=== PATIENT | male | born 1960 | race Caucasian/White ===

== ENCOUNTER 2020-04-15 12:53 | Observation (INO) | payer OTHER, SELFPAY ==
[2020-04-15] VITALS (14 sets, daily range): BP systolic 107–172; BP diastolic 60–105; PULSE 60–165; RESP 16–20; TEMP 36.1–36.7; O2SAT 97–100; BMI 30.4
--- NOTE | ~2020-04-15 | CT_ITS ---
EXAMINATION: CTA chest PE protocol EXAM DATE: 04/15/2020 23:28 INDICATION: Shortness of breath and tachycardia. TECHNIQUE: Spiral CTA of the chest (pulmonary arteries) was performed with 100 cc Omnipaque 350 intr avenous contrast injection. Images were acquired during the pulmonary arterial phase. Coronal maxi mum intensity projection 3D-reconstructions were created by the technologist on dedicated workstation . Axial, coronal and sagittal reformatted images were reviewed. The dose-length product (DLP) for t his examination was 597.69 mGy-cm. The exposure was tailored according to patient size (auto mA exp osure control), and iterative reconstruction (ASIR) was used as additional dose reduction technique. There is no prior study for comparison. FINDINGS: Pulmonary arteries are well opacified and without intraluminal filling defects. No thora cic aortic dissection. The lungs are clear. There are no pleural or pericardial effusions. Trach eobronchial tree is patent. There is no mediastinal, hilar or axillary lymphadenopathy. There is no pneumothorax. Heart normal in size. There is minimal coronary arterial calcification, arterial sclerosis. There is small sliding gastroesophageal hiatal hernia. There is thoracic spondylosis wit hout osteoblastic or osteolytic lesions identified. IMPRESSION: 1. Unremarkable CT pulmonary examination. Reviewed, dictated and finalized at location G.
--- NOTE | ~2020-04-15 | XR_ITS ---
EXAMINATION: XR chest 1V portable INDICATION: Palpitations TECHNIQUE: Portable AP chest at 1342 hours COMPARISON: None available FINDINGS: The lungs are free of acute opacities. There is no pleural effusion or pneumothorax. The ca rdiomediastinal silhouette is normal. The visualized bones and soft tissues are unremarkable. IMPRESSION: 1. No acute cardiopulmonary abnormality. Reviewed, dictated and finalized at location B.
--- NOTE | 2020-04-15 13:01 | ECG_ITS ---
Measurements Intervals [place] Rate: 175 P: [place]: 0 QRS: 9 QRSD: 95 T: 9 QT: 258 QTc: 441 Interpretive Statements SUPRAVENTRICULAR TACHYCARDIA INCOMPLETE RIGHT BUNDLE BRANCH BLOCK ABNORMAL ECG Electronically Signed On 04-15-2020 13:21:29 CDT by Varun Marquez D.O.
--- NOTE | 2020-04-15 13:01 | ED.GENADULT ---
HPI - General Adult General Chief complaint: Chest Pain Stated complaint: Heart Racing Time Seen by Provider: 04/15/20 13:01 Source: patient and family Mode of arrival: ambulatory Limitations: no limitations History of Present Illness HPI narrative: Patient is a 59-year-old male with a history of hypertension, not currently being treated, who presents for evaluation of chest pain and palpitations. Patient reportedly with palpitations that began acutely this afternoon while the patient was at work. 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 His boss told him to come to the emergency department for assessment. Patient had no syncopal events. Currently he is denying any chest pain but reporting palpitations and extreme anxiety. Patient without history any other cardiac problems. No history of DC. His mother has a history of heart disease. He has no recent decreased oral intake or medication changes. He denies drug use, he reports that he is a daily drinker with binge drinking on the weekends; greater than 10 drinks per week. Related Data Home Medications Medication Instructions Recorded Confirmed No Home Medications 04/15/20 04/15/20 Allergies Allergy/AdvReac Type Severity Reaction Status Date / Time No Known Allergies Allergy Verified 04/15/20 13:33 Review of Systems Review of Systems: Narrative: CONSTITUTIONAL: Denies fever, chills, reports feeling diaphoretic EYES: Denies visual changes ENT: Denies rhinorrhea, congestion, sore throat, or otalgia. CARDIOVASCULAR: Reports earlier chest pain, now resolved, and palpitations RESPIRATORY: Denies cough or dyspnea. GASTROINTESTINAL: Denies abdominal pain, nausea, vomiting, or diarrhea. GENITOURINARY: Denies dysuria or hematuria. SKIN: Denies rash or itching. MUSCULOSKELETAL: Denies back pain, joint pain, or myalgia. NEUROLOGIC: Denies headache, numbness, or weakness. 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 EYES: PERRLA and EOMI. ENT: Nares clear, no rhinorrhea or epistaxis. Mucous membranes moist. NECK: Supple. CHEST: No respiratory distress, breathing even and non labored HEART: Tachycardic rate, sinus rhythm ABDOMEN:Non distended, non tender EXTREMITIES: Normal range of motion. No edema. SKIN: Warm, dry, no rash. NEURO:No focal deficits. Alert and oriented x3 Course Vital Signs Vital signs: Vital Signs Temperature 36.7 C 04/15/20 13:09 Pulse Rate 165 H 04/15/20 13:09 Respiratory Rate 20 04/15/20 13:09 Blood Pressure 166/105 H 04/15/20 13:09 Pulse Oximetry 100 04/15/20 13:09 Temperature 36.7 C 04/15/20 13:09 Pulse Rate 78 04/15/20 14:54 Respiratory Rate 04/15/20 14:54 Blood Pressure 151/82 H 04/15/20 14:54 Pulse Oximetry 99 04/15/20 14:54 Medical Decision Making MDM Narrative Medical decision making narrative: Patient presented for evaluation of chest pain and palpitations. At the time of assessment, ABCs are intact, vital signs are notable for tachydysrhythmia, it does appear to be consistent with possible SVT or A. fib vs a flutter with RVR, rate is still fast very difficult to discern P waves. IV access obtained and labs are drawn. We attempted vagal maneuvers o
--- NOTE | 2020-04-15 13:15 | PC.NURSE ---
EDP at bedside to eval pt. Pt remains in SVT, HR in 160's. Pt placed on [place] monitor, continueous EKG. VORB for 6mg Adenosine given, no change in pt HR. VORB for 12 mg Adenosine, dose administered. HR responded and remains in the 90's. Pt tolerated well.
[2020-04-15] MEDS: ADENOSINE IV SOLN 6 MG/2 ML VIAL IV PUSH (13:20)
[2020-04-15] MEDS: ADENOSINE IV SOLN 6 MG/2 ML VIAL 12 MG IV PUSH (13:22)
[2020-04-15 13:24] LABS: Basophils Percent Auto 0.4 % (0.2-1.2); Eosinophils Absolute Auto 0.1 K/mm3 (0-0.3); Eosinophils Percent Auto 0.7 % (0-4.4); Hemoglobin 15.6 g/dL (14.0-18.0); Immature Granulocyte Absolute 0.04 K/mm3 (0.00-0.031); Immature Granulocyte Percent A 0.4 % (0-0.5); Lymphocytes Absolute Auto 1.69 K/mm3 (0.9-3.2); Lymphocytes Percent Auto 17.5 % (18.3-44.2); Mean Corpuscular HGB Conc 33.9 g/dl (32-36); Mean Corpuscular Hemoglobin 30.6 pg (26-34); Mean Corpuscular Volume 90.4 fl (80-100); Mean Platelet Volume 10.8 fl (7.4-10.4); Monocytes Absolute Auto 0.7 K/mm3 (0.1-0.6); Monocytes Percent Auto 7.4 % (2.6-8.5); Neutrophils Absolute Auto 7.1 K/mm3 (1.3-6.7); Neutrophils Percent Auto 73.6 % (45.5-73.1); Platelet Count Result 246 k/mm3 (150-375); Red Blood Count 5.09 M/mm3 (4.6-6.20); Red Cell Distribution Width 12.8 % (11.5-14.5); White Blood Count 9.7 K/mm3 (4.5-10.0)
[2020-04-15] MEDS: ONDANSETRON INJ 4 MG/2 ML VIAL IV PUSH (13:31)
[2020-04-15] MEDS: SODIUM CHLORIDE 0.9% IV 1,000 ML 999 ML IV CONT (13:31)
[2020-04-15 13:35] LABS: Anion Gap 9 mmol/L (8-16); Blood Urea Nitrogen 13 mg/dL (9-20); Calcium 9.3 mg/dL (8.4-10.2); Carbon Dioxide 28 mmol/L (22-30); Chloride 98 mmol/L (98-107); Estimated Glomerular Filt Rate > 60; Glucose 133 mg/dL (75-110); Potassium 3.6 mmol/L (3.4-5.0); Sodium 135 mmol/L (137-145)
[2020-04-15] MEDS: ASPIRIN 81 MG CHEWABLE TABLET 324 MG PO (13:44)
--- NOTE | 2020-04-15 13:44 | ECG_ITS ---
Measurements Intervals [place] Rate: 106 P: 52 [place]: 158 QRS: 41 QRSD: 102 T: 45 QT: 322 QTc: 428 Interpretive Statements SINUS TACHYCARDIA INCOMPLETE RIGHT BUNDLE BRANCH BLOCK ABNORMAL ECG Electronically Signed On 04-15-2020 14:07:50 CDT by Varun Marquez D.O.
[2020-04-15 13:45] LABS: NT Pro B Type Natriuretic Pept 228 PG/ML (5-100)
[2020-04-15 13:50] LABS: Prothrombin Time 12.9 Seconds (11.1-14.7); Troponin I < 0.012 ng/mL (0.000-0.034)
[2020-04-15 13:51] LABS: Partial Thromboplastin Time 26.1 SECONDS (22.3-36.8)
[2020-04-15 14:00] LABS: D Dimer 0.31 ug/mL (<0.48)
--- NOTE | 2020-04-15 14:00 | PC.NURSE ---
EDP at bedside. VORB to not administered diltiazem bolus but to start Diltiazem infusion at 5mg/hr.
--- NOTE | 2020-04-15 15:02 | PM.CNCAR ---
Assessment and Plan Assessment and plan (1) Chest pain: Qualifiers: Chest pain type: other chest pain Qualified Code(s): R07.89 - Other chest pain Code(s): R07.9 - Chest pain, unspecified Status: Acute Assessment and Plan: atypical chest pain, seems to be worsened by palpation, will consider stress test at some point either this admission or later on as an outpatient (2) Heart palpitations: Code(s): R00.2 - Palpitations Status: Acute Assessment and Plan: seems to have SVT, improved with Cardizem IV, will switch to oral Cardizem, and subsequently long-term Cardizem or metoprolol. Will get echocardiogram to look for structural heart disease and look for any other abnormalities (3) SVT (supraventricular tachycardia): Code(s): I47.1 - Supraventricular tachycardia Status: Acute Assessment and Plan: responded to adenosine, and responded to Cardizem IV, will continue with Cardizem for now and switch to oral Cardizem later (4) Alcohol abuse: Code(s): F10.10 - Alcohol abuse, uncomplicated Status: Acute Assessment and Plan: discussed with him about the finding and he agreed to decrease his alcohol consumption Additional Plan Thank you for allowing me to participate in this patient's care, I will be following up with you. Please do not hesitate to call me for any other inquiry History of Present Illness History of Present Illness Consult date/time: 04/15/20 15:02 59 years old gentleman with no significant past history, came to the hospital because of palpitation dizziness lightheadedness. Noted to have supraventricular tachycardia with rates as high as 160. Was given adenosine in the emergency room converted sinus rhythm and stayed in sinus rhythm for lobe and then went back again with SVT, subsequently started on Cardizem drip, and currently he is in sinus rhythm rate of 80. He stated that he has been getting occasional palpitation but been getting more frequent lately, mostly after stress. He had significant alcohol drinking over the weekend and he had a drink yesterday, he stated that he has occasional heavy drinking, and he gets palpitation in the next day. This time that today he felt heaviness to the back of his chest, and he felt lightheaded and dizzy but did not pass out and no syncope. No nausea no vomiting. No history of known coronary artery disease Reason For Visit: tachydysrhythmia,atypical chest pain Review of Systems Constitutional: Constitutional: Reports fatigue Cardiovascular: Cardiovascular: Denies chest pain, Denies leg edema, Reports lightheadedness and Reports palpitations PMFSH Past Medical History Medical History Anxiety Hypertension Social History Social History Smoking status: Current some day smoker Tobacco type: smokeless tobacco Smokeless tobacco user: chewing tobacco Alcohol intake: never Substance use: current Substance use type: marijuana Living arrangements: with family Occupation/Education: occupation 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 Gender identity (if verbalized by the patient): Male Meds Home Medications and Allergies Home Medications Medication Instructions Recorded Confirmed Type No Home Medications 04/15/20 04/15/20 History Allergies Allergy/AdvReac Type Severity Reaction Status Date / Time No Known Allergies Allergy Verified 04/15/20 13:33 Vital Signs Vital Signs - 24 hr 04/15/20 13:09 04/15/20 13:26 04/15/20 13:30 Temperature 36.7 C Pulse Rate 165 H 99 Respiratory Rate 20 20 Blood Pressure 166/105 H 172/96 H Pulse Oximetry 100 97 100 04/15/20 13:59 04/15/20 14:54 Temperature Pulse Rate 100 78 Respiratory Rate 20 20 Blood Pressure 147/100 H 151/82 H Pulse Oximetry 99 99 Exam Narrative: E
--- NOTE | 2020-04-15 15:05 | ADMGEN ---
This patient, Richie Blackburn, was admitted to IMU Room 200-01. Patient/family oriented to hospital policies and general routines including ID bracelet, bed and alarms, visiting hours, pain management, procedures, bathroom and other care routines, personal items, smoking policy, room service/diet, and visiting hours. Valuables list has been completed. Information on how to activate the Rapid Response Team has been discussed. Patient/Family are encouraged to report perceived risks to care and to ask questions if they do not understand what they are told or what they should do.
[2020-04-15] MEDS: METOPROLOL SUCCINATE EXT REL 25 MG TABCR PO (15:56)
[2020-04-15 17:27] LABS: Cholesterol 155 mg/dL (0-200); HDL Direct 56 mg/dL; Triglycerides 37 mg/dL (<150)
[2020-04-15 17:38] LABS: LDL Cholesterol Direct 87 mg/dL
--- NOTE | 2020-04-15 18:17 | PM.IMHP ---
H&P: HPI History of Present Illness Date/Time: 04/15/20 18:17 Chief complaint: tachydysrhythmia,atypical chest pain Narrative: Richie Blackburn is a 59 year old male Who has a past medical history of hypertension but no longer takes anything for his high blood pressure. He also stated that he has some anxiety. The patient stated he just did not feel right this past Sunday. The patient stated that he drinks approximately 6 beers a Budweiser daily. He drinks every day and does not experience any withdrawal symptoms. The last he drink alcohol was last night. 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 Today around 10:30 he started to feel poorly. Said he felt like his heart was racing and he had never experienced this before. He does have some anxiety. He said Sunday he was having some stress and felt like this on Sunday as well. Today he became diaphoretic an air-conditioned trailer. He felt like his heart was going to raise out of his chest knee looked down at his chest and his heart was beating really fast. The patient felt like he was going to pass out. He had no nausea or vomiting at the time. On the way to the hospital he had some tingling to his left arm. He has not had any cardiac issues in the past. He was at work today when this occurred. The patient was afebrile. His blood pressure was elevated. He also felt somewhat short of breath today as well. The patient had not been going through any DTs at the time. Electrolytes are within normal limits. Renal function within normal limits. Troponin negative x2. Chest x-ray was read as no acute cardiopulmonary disease. Cardiology has been consulted. Patient's heart rate started to come down on his own but then came back up and then patient was given adenosine x2. He it was also given an aspirin IV fluids Ativan IV Cardizem push x1 and then a drip was started. Cardiology has seen the patient in the emergency room. Date of service 04/15/2020. Review of Systems Review of Systems: All systems reviewed & are unremarkable except as noted in HPI and below Constitutional: Constitutional: Reports as per HPI and Reports no additional constitutional complaints Eyes: Eyes: Reports as per HPI and Reports no additional eye complaints ENT: Reports system reviewed and no additional complaints, except as documented and Reports Normal hearing present Cardiovascular: Cardiovascular: Reports no additional cardiovascular complaints Respiratory: Respiratory: Reports no additional respiratory complaints and Reports no additional respiratory complaints Gastrointestinal: Gastrointestinal: Reports as per HPI and Reports no additional gastrointestinal complaints Musculoskeletal: Musculoskeletal: Reports no additional musculoskeletal complaints Integumentary/Breasts: Skin/Breast: Reports system reviewed and no additional complaints, except as docu and Reports as per HPI Neurologic: Reports system reviewed and no additional complaints, except as documented, Reports as per HPI and Reports Normal hearing present Psychiatric: Psychiatric: Reports no additional psychiatric complaints and Reports as per HPI Endocrine: Endocrine: Reports no additional endocrine complaints Hematologic/Lymphatic: Hematologic/Lymphatic: Reports no additional hematologic/lymphatic complaints Allergic/Immunologic: Allergic/Immunologic: Reports no additional allergic/immunologic complaints [facility] Past Medical History Medical History (Updated 04/15/20 @ 18:32 by Brielle Ware NP) Anxiety Hypertension Has not been taking any medicine at home. Lipoma of back excised Surgical History Surgical History (Updated 04/15/20 @ 18:25 by Brielle Ware NP) H/O hemorrhoidectomy Family History Family History (Updated 04/15/20 @ 18:26 by Brielle Ware NP) Mother Heart disease CAD (coronary artery disease) Father Alzheimer's dementia Social
[2020-04-15] MEDS: chlordiazePOXIDE 10 MG CAPSULE PO (20:05)
[2020-04-15] MEDS: dilTIAZem HCL 30 MG TABLET PO (20:06)
[2020-04-15 20:58] LABS: Troponin I 0.033 ng/mL (0.000-0.034)
[2020-04-16] VITALS (11 sets, daily range): BP systolic 116–122; BP diastolic 59–70; PULSE 58–100; RESP 16–20; TEMP 36.1–36.8; O2SAT 97–100
--- NOTE | 2020-04-16 | ECHO_ITS ---
Patient Info Name: Richie Blackburn Age: 59 years : 1960 Gender: Male Ht: 68 in Wt: 215 lbs BSA: 2.20 m2 HR: 62 bpm BP: 118 / 70 mmHg Technical Quality: Good Exam Date: 04/16/2020 9:20 AM Exam Location: [facility] Patient Status: Inpatient Admit Date: 04/15/2020 Staff Ordering Physician: Maximilian Howard MD Auto Washer: Amarilys Rushing RDCS Attending Provider: Aashish Ortega MD Exam Type: CA echo doppler color flow Study Info Indications - SVT Complete two-dimensional, color flow and Doppler transthoracic echocardiogram is performed. Summary 1. Complete two-dimensional, color flow and Doppler transthoracic echocardiogram is performed. 2. Left ventricular chamber dimension is normal. 3. Left ventricular ejection fraction is normal, estimated at 5560 %. 4. Mild sclerosis of the mitral valve. 5. There is trace mitral valve regurgitation. 6. There is mild aortic valve sclerosis. 7. Grade II diastolic dysfunction of the left ventricle (pseudonormal filling pattern). Left Ventricle Left ventricular chamber dimension is normal. Left ventricular ejection fraction is normal, estimated at 5560 %. Grade II diastolic dysfunction of the left ventricle (pseudonormal filling pattern). Left Atria Left atrial chamber dimension is normal. Right Atria Right atrial chamber dimension is normal. Aortic Valve The aortic valve is trileaflet. There is mild aortic valve sclerosis. Mitral Valve Mild sclerosis of the mitral valve. There is trace mitral valve regurgitation. Left Ventricular Outflow Tract Name Value Normal LVOT 2D LVOT Diameter 2.1 cm LVOT Doppler LVOT Peak Gradient 4 mmHg LVOT Mean Gradient 2 mmHg LVOT VTI 22 cm LVOT VTI/AV VTI Ratio 0.7 LVOT Stroke Volume 77 ml LVOT CO 15.4 l/min LVOT CI 7.3 l/min/m2 Pulmonic Valve Name Value Normal PV Doppler PV Peak Gradient 3 mmHg PV Regurgitation Doppler MT Peak End Diastolic Velocity 95 cm/s Mitral Valve Name Value Normal MV Doppler MV Decel [place] 400 cm/s2 MV PHT 55 ms MV Area (PHT) 4.0 cm2 4.0-5.0 MV Diastolic Function MV E Peak Velocity
[2020-04-16] MEDS: dilTIAZem HCL 30 MG TABLET PO ×3 (01:30→13:58)
[2020-04-16 04:28] LABS: Basophils Absolute Auto 0.1 K/mm3 (0.0-0.1); Basophils Percent Auto 0.8 % (0.2-1.2); Eosinophils Absolute Auto 0.1 K/mm3 (0-0.3); Eosinophils Percent Auto 2.2 % (0-4.4); Hematocrit 40.8 % (42.0-52.0); Hemoglobin 13.7 g/dL (14.0-18.0); Immature Granulocyte Absolute 0.01 K/mm3 (0.00-0.031); Immature Granulocyte Percent A 0.2 % (0-0.5); Lymphocytes Absolute Auto 1.35 K/mm3 (0.9-3.2); Lymphocytes Percent Auto 21.4 % (18.3-44.2); Mean Corpuscular HGB Conc 33.6 g/dl (32-36); Mean Corpuscular Hemoglobin 30.4 pg (26-34); Mean Corpuscular Volume 90.7 fl (80-100); Mean Platelet Volume 10.8 fl (7.4-10.4); Monocytes Absolute Auto 0.6 K/mm3 (0.1-0.6); Monocytes Percent Auto 9.2 % (2.6-8.5); Neutrophils Absolute Auto 4.2 K/mm3 (1.3-6.7); Neutrophils Percent Auto 66.2 % (45.5-73.1); Platelet Count Result 191 k/mm3 (150-375); Red Cell Distribution Width 12.9 % (11.5-14.5); White Blood Count 6.3 K/mm3 (4.5-10.0)
[2020-04-16 05:09] LABS: Alanine Aminotransferase 21 U/L (4-50); Albumin Level 3.3 g/dL (3.5-5.1); Alkaline Phosphatase 47 U/L (38-126); Anion Gap 5 mmol/L (8-16); Aspartate Amino Transferase 27 U/L (17-59); Bilirubin,Total 0.5 mg/dL (0.2-1.3); Blood Urea Nitrogen 11 mg/dL (9-20); Calcium 8.7 mg/dL (8.4-10.2); Carbon Dioxide 25 mmol/L (22-30); Chloride 105 mmol/L (98-107); Estimated CRCL calculation 110 ml/min; Estimated Glomerular Filt Rate > 60; Glucose 88 mg/dL (75-110); Magnesium 2.1 mg/dL (1.6-2.3); Phosphorus 2.9 mg/dL (2.5-4.5); Potassium 4.3 mmol/L (3.4-5.0); Sodium 135 mmol/L (137-145)
[2020-04-16] MEDS: METOPROLOL SUCCINATE EXT REL 25 MG TABCR PO (08:32)
[2020-04-16] MEDS: ASPIRIN 81 MG CHEWABLE TABLET PO (08:32)
[2020-04-16] MEDS: FOLIC ACID 1 MG TABLET PO (08:32)
[2020-04-16] MEDS: THIAMINE HCL 100 MG TABLET PO (08:32)
--- NOTE | 2020-04-16 09:31 | PM.PNCARD ---
Progress Note: A&P Assessment and Plan (1) Chest pain: Qualifiers: Chest pain type: other chest pain Qualified Code(s): R07.89 - Other chest pain Code(s): R07.9 - Chest pain, unspecified Status: Acute Assessment and Plan: atypical chest pain, seems to be worsened by palpation ECHO showed normal LV systolic function will consider stress test at some point as an outpatient (2) Anxiety: Code(s): F41.9 - Anxiety disorder, unspecified Status: Chronic (3) Hypertension: Code(s): I10 - Essential (primary) hypertension Status: Chronic (4) Alcohol abuse: Code(s): F10.10 - Alcohol abuse, uncomplicated Status: Acute (5) Heart palpitations: Code(s): R00.2 - Palpitations Status: Acute Assessment and Plan: initially with SVT and yesterday converted to NSR cont Cardizem and Metoprolol monitor electrolytes and kidney function, Subjective Date/time seen: 04/16/20 09:31 Pt feels fine today. No CP, SOB or palpitations. Pt was seen and examined, chart reviewed, aiyana d/w pt's nurse. Review of Systems Review of Systems: All systems reviewed & are unremarkable except as noted in HPI and below Constitutional: Constitutional: Reports as per HPI Eyes: Eyes: Reports as per HPI ENT: Reports system reviewed and no additional complaints, except as documented and Reports as per HPI Cardiovascular: Cardiovascular: Reports as per HPI Respiratory: Respiratory: Reports as per HPI Gastrointestinal: Gastrointestinal: Reports as per HPI Genitourinary: Genitourinary: Reports as per HPI Musculoskeletal: Musculoskeletal: Reports as per HPI Exam Const: General: no acute distress Nutritional Appearance: well nourished Orientation/consciousness: patient oriented x3 HENMT: Head: normal to inspection and atraumatic Ears: hearing grossly normal bilaterally Face and sinus: normal facial exam Eyes: General: appearance normal, both eyes and all related structures Pupils: Equal, round and reactive pupils present EOM: EOMs intact bilaterally Neck: Neck: supple Chest: Chest palpation & inspection: normal inspection of the chest Resp: Effort & Inspection: normal respiratory effort and no respiratory distress Auscultation: clear to auscultation bilaterally Cardio: Jugular venous distension: no JVD Rate: regular rate Heart sounds: S1 normal heart sound present, S2 normal heart sound present and no murmurs Peripheral pulses: Peripheral pulses 2+ throughout GI: GI Palp: No abdominal tenderness Auscultation: normal bowel sounds Skin: General skin exam: normal color Neuro: General: patient oriented x3 Cranial nerves: Yes Equal, round and reactive pupils present Extrem: General: normal to inspection and no clubbing, cyanosis or edema Objective Data Vital Signs Vital Signs: Vital Signs - 24 hr 04/15/20 13:09 04/15/20 13:26 04/15/20 13:30 Temperature 36.7 C Pulse Rate 165 H 99 Pulse Rate [Monitor] Respiratory Rate 20 20 Blood Pressure 166/105 H 172/96 H Pulse Oximetry 100 97 100 04/15/20 13:59 04/15/20 14:54 04/15/20 15:33 Temperature 36.4 C L Pulse Rate 100 78 78 Pulse Rate [Monitor] Respiratory Rate 20 20 16 Blood Pressure 147/100 H 151/82 H 144/76 H Pulse Oximetry 99 99 100 04/15/20 15:56 04/15/20 16:00 04/15/20 17:58 Temperature Pulse Rate 71 85 74 Pulse Rate [Monitor] Respiratory Rate Blood Pressure Pulse Oximetry 04/15/20 18:16 04/15/20 19:28 04/15/20 20:00 Temperature 36.3 C L Pulse Rate 69 64 Pulse Rate [Monitor] 71 Respiratory Rate 16 Blood Pressure 125/70 Pulse Oximetry 99 04/15/20 21:43 04/15/20 23:02 04/16/20 00:00 Temperature 36.1 C L Pulse Rate 60 65 62 Pulse Rate [Monitor] Respiratory Rate 20 Blood Pressure 107/60 Pulse Oximetry 97 04/16/20 02:00 04/16/20 03:39 04/16/20 04:00 Temperature 36.1 C L Pulse Rate 60 60 60 Pulse Rate [Mon
--- NOTE | 2020-04-16 14:02 | PM.DS ---
DS: Admitting Diagnosis Admitting Diagnosis Admitting Diagnosis: tachydysrhythmia,atypical chest pain DS: Discharge Diagnosis Discharge Diagnosis (1) Alcohol abuse: Code(s): F10.10 - Alcohol abuse, uncomplicated Status: Acute (2) SVT (supraventricular tachycardia): Code(s): I47.1 - Supraventricular tachycardia Status: Acute (3) Heart palpitations: Code(s): R00.2 - Palpitations Status: Acute (4) Hypertension: Code(s): I10 - Essential (primary) hypertension Status: Chronic (5) Anxiety: Code(s): F41.9 - Anxiety disorder, unspecified Status: Chronic DS: Summary Hospital Course Reason for hospitalization: SVT Hospital Course: 59 yo with history of alcohol abuse presented to the hospital with palpitations, diaphoresis he also reported tingling of the arms. He was found to have SVT in the ER, his heart rate was around 180, he was given adenosine with a modest response. He then received a cardizem loading dose and was placed on a drip. His troponin came back negative, his cxr was unremarkable. The patient also had a echocardiogram that showed a normal EF, no wall motion abnormalities, trace tricuspid regurgitation and grade II diastolic dysfunction. His medications were transitioned to diltiazem 120 mg ER and metoprolol succinate 25 mg daily and his heart rate remained within normal limits. Patient should follow up with cardiology and his PCP , he was also advised to stop drinking alcohol. Status at Discharge Cognitive/behavioral status at discharge: Alert and oriented Functional status at discharge: independent ambulation Overall status at discharge: patient is back to baseline Time Spent with Patient Time attestation: Total time spent providing and/or coordinating discharge services: Time spent: Greater than 30 minutes Exam Const: General: comfortable and no acute distress Neck: Neck: supple and no JVD Resp: Effort & Inspection: normal respiratory effort Auscultation: clear to auscultation bilaterally Cardio: Rate: regular rate Rhythm: regular rhythm Other: No bradycardia or tachycardia GI: GI Palp: Yes Soft to palpation Auscultation: normal bowel sounds Neuro: Motor exam (neuro): 5/5 motor strength present throughout and Normal motor muscle tone present throughout Sensory Exam: normal sensation Extrem: General: normal to inspection DS: Data Data Completed and Pending Labs on day of discharge: Labs from last 24 hours 04/16/20 04/16/20 04/16/20 04:08 04:08 04:08 WBC 6.3 RBC 4.50 L Hgb 13.7 L Hct 40.8 L MCV 90.7 MCH 30.4 MCHC 33.6 RDW 12.9 Plt Count 191 MPV 10.8 H Immature Gran % (Auto) 0.2 Neut % (Auto) 66.2 Lymph % (Auto) 21.4 [place] % (Auto) 9.2 H Eos % (Auto) 2.2 Baso % (Auto) 0.8 Lymph # (Auto) 1.35 [place] # (Auto) 0.6 Eos # (Auto) 0.1 Baso # (Auto) 0.1 Abs Immat Gran (auto) 0.01 Absolute Neuts (auto) 4.2 Absolute Nucleated RBC 0.0 Nucleated RBC % 0.0 Sodium 135 L Potassium 4.3 Chloride 105 Carbon Dioxide 25 Anion Gap 5 L BUN 11 Creatinine 0.70 Estim Creat Clear Calc 110 Estimated GFR > 60 Glucose 88 Calcium 8.7 Phosphorus 2.9 Magnesium 2.1 Total Bilirubin 0.5 AST 27 ALT 21 Alkaline Phosphatase 47 Troponin I Total Protein 6.0 L Albumin 3.3 L Triglycerides Cholesterol LDL Cholesterol Direct HDL Direct TSH (Reflex) 1.300 04/15/20 04/15/20 04/15/20 20:00 16:56 16:56 WBC RBC Hgb Hct MCV MCH MCHC RDW Plt Count MPV Immature Gran % (Auto) Neut % (Auto) Lymph % (Auto) [place] % (Auto) Eos % (Auto) Baso % (Auto) Lymph # (Auto) [place] # (Auto) Eos # (Auto) Baso # (Auto) Abs Immat Gran (auto) Absolute Neuts (auto) Absolute Nucleated RBC Nucleated RBC % Sodium Potassium Chloride Carbon
== END 2020-04-16 14:55 | disposition home or self-care (01) ==
LOC: ANHED 13:48 → ANHIMU 14:55
PROVIDERS: Nurse Practitioner; Specialist; Admitting Provider Hospitalist; Emergency Provider Emergency Medicine; PCP Chiropractor; Visit Provider Hospitalist
DX: F10.10 Alcohol abuse, uncomplicated (principal); R07.9 Chest pain, unspecified; I47.1 Supraventricular tachycardia; I10 Essential (primary) hypertension; F12.90 Cannabis use, unspecified, uncomplicated; F17.220 Nicotine dependence, chewing tobacco, uncomplicated; F41.9 Anxiety disorder, unspecified
CPT/HCPCS: 36415; 71045; 71275; 80048; 80053; 80061; 83735; 83880; 84100; 84443; 84484; 85025; 85380; 85610; 85730; 93005; 93306; 96374; 96375; 96376; 99285; A9270; G0378; J0153; J2060; J2405; J7030; Q9967

== ENCOUNTER 2023-03-30 19:40 | Emergency (ER) | payer BC, SELFPAY ==
--- NOTE | ~2023-03-30 | XR_ITS ---
EXAMINATION: XR chest 2V DATE: 03/30/2023 20:08 INDICATION: Chest pain TECHNIQUE: frontal and lateral views of the chest were obtained. COMPARISON: Chest CT and chest radiograph dated 04/15/2020 FINDINGS: The lungs remain clear with no focal airspace opacities, pulmonary edema, pleural effusion or pneumot horax. Heart size is normal. Mild thoracic kyphosis with chronic mild anterior wedging of a few mid t horacic vertebral bodies. IMPRESSION: 1. No acute cardiopulmonary disease. Reviewed, dictated and finalized at location A.
--- NOTE | 2023-03-30 19:41 | ECG_ITS ---
Measurements Intervals [place] Rate: 101 P: 22 SC: 161 QRS: -20 QRSD: 106 T: 17 QT: 347 QTc: 450 Interpretive Statements SINUS TACHYCARDIA ABNORMAL RHYTHM ECG COMPARED TO ECG 04/15/2020 13:06:42 NO SIGNIFICANT CHANGES Electronically Signed On 03-31-2023 11:35:24 CDT by Fabrizio Manuel MD
[2023-03-30 19:51] VITALS: BP 135/97; PULSE 107; RESP 19; TEMP 36.6; O2SAT 100
[2023-03-30 20:15] LABS: Basophils Absolute Auto 0.1 K/mm3 (0.0-0.1); Basophils Percent Auto 0.8 % (0.2-1.2); Eosinophils Absolute Auto 0.1 K/mm3 (0-0.3); Eosinophils Percent Auto 1.6 % (0-4.4); Hemoglobin 16.2 g/dL (14.0-18.0); Immature Granulocyte Absolute 0.03 K/mm3 (0.00-0.031); Immature Granulocyte Percent A 0.3 % (0-0.5); Lymphocytes Absolute Auto 2.28 K/mm3 (0.9-3.2); Lymphocytes Percent Auto 25.2 % (18.3-44.2); Mean Corpuscular HGB Conc 34.5 g/dl (32-36); Mean Corpuscular Hemoglobin 30.8 pg (26-34); Mean Corpuscular Volume 89.4 fl (80-100); Mean Platelet Volume 10.1 fl (7.4-10.4); Monocytes Absolute Auto 0.6 K/mm3 (0.1-0.6); Neutrophils Absolute Auto 5.9 K/mm3 (1.3-6.7); Neutrophils Percent Auto 65.1 % (45.5-73.1); Platelet Count Result 291 k/mm3 (150-375); Red Blood Count 5.26 M/mm3 (4.6-6.20); Red Cell Distribution Width 12.9 % (11.5-14.5)
[2023-03-30 20:31] LABS: Alanine Aminotransferase 35 U/L (6-50); Albumin Level 4.5 g/dL (3.5-5.1); Alkaline Phosphatase 71 U/L (38-126); Anion Gap 8 mmol/L (8-16); Aspartate Amino Transferase 40 U/L (17-59); Bilirubin,Total 0.7 mg/dL (0.2-1.3); Blood Urea Nitrogen 8 mg/dL (9-20); Calcium 9.2 mg/dL (8.4-10.2); Carbon Dioxide 29 mmol/L (22-30); Chloride 93 mmol/L (98-107); Estimated CRCL calculation 98 ml/min; Estimated Glomerular Filt Rate > 60; Glucose 112 mg/dL (65-110); Lipase 63 U/L (23-300); Potassium 3.8 mmol/L (3.4-5.0); Sodium 130 mmol/L (137-145)
[2023-03-30 20:39] LABS: Prothrombin Time 13.3 Seconds (11.1-14.7); Troponin I < 0.012 ng/mL (0.000-0.034)
[2023-03-30 22:50] VITALS: BP 132/73; PULSE 77; RESP 16; O2SAT 99
[2023-03-31 00:17] LABS: Troponin I < 0.012 ng/mL (0.000-0.034)
[2023-03-31 01:14] VITALS: BP 174/85; PULSE 74; O2SAT 100
[2023-03-31] MEDS: SODIUM CHLORIDE 0.9% IV 1,000 ML 999 ML IV CONT (01:53)
[2023-03-31] MEDS: LORazepam (*CRX) 0.5 MG TABLET PO (01:58)
--- NOTE | 2023-03-31 01:59 | ED.ARRPALP ---
HPI - Arrhythmia/Palpitations General Chief Complaint: Chest Pain Stated Complaint: cp Time Seen by Provider: 03/31/23 01:11 Source: patient Mode of arrival: ambulatory Limitations: no limitations History of Present Illness HPI narrative: This is a 62 year old male that presents to the ER for lightheadedness. Reports he has been working outside all week. Reports he feels lightheaded upon standing. Also reports that he has had some feelings of his heart racing. He does have history of SVT for which she takes metoprolol and diltiazem. His mutual fund manager is Dr. Howard. Denies chest pain, shortness of breath, or lower extremity edema. Related Data Allergies Allergy/AdvReac Type Severity Reaction Status Date / Time No Known Allergies Allergy Verified 04/15/20 13:33 Review of Systems Review of Systems: CONSTITUTIONAL: Denies fever CARDIOVASCULAR: Reports palpitations. Denies chest pain, or edema. RESPIRATORY: Denies dyspnea. All systems reviewed & are unremarkable except as noted in HPI and below PMFSH Past Medical History Medical History (Updated 03/31/23 @ 03:06 by Linda Baxter PA-C) Anxiety Hypertension Has not been taking any medicine at home. Lipoma of back excised Surgical History Surgical History (Updated 04/15/20 @ 18:25 by Brielle Ware NP) H/O hemorrhoidectomy Family History Family History (Updated 04/15/20 @ 18:26 by Brielle Ware NP) Mother Heart disease CAD (coronary artery disease) Father Alzheimer's dementia Social History Social History (Updated 04/15/20 @ 18:30 by Brielle Ware NP) Social History: patient Desires his to be the durable power corporate attorney for healthcare. The patient is full code. They have 1 child together. 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 He drinks approximately 6 or 7 beers a night. He stated that he does not go through any withdrawals. Does occasionally use marijuana. He denies using any other illicit drugs. 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 HEAD: Normocephalic, atraumatic. EYES: PERRLA and EOMI. ENT: Nares clear, no rhinorrhea or epistaxis. Mucous membranes moist. Oropharynx without tonsillar hypertrophy exudate or other lesions. Bilateral TMs pearly avila non-bulging NECK: Supple. No adenopathy or masses. CHEST: Clear to auscultation. No respiratory distress. No wheezes rales or rhonchi HEART: Regular rate and rhythm. No murmur heard. Normal peripheral pulses. EXTREMITIES: Normal range of motion. No edema. Strength equal in bilateral upper and lower extremities (5/5) SKIN: Warm, dry, no rash. NEURO: No focal deficits. Alert and oriented x3. Cranial nerves II through XII grossly intact PSYCH: Normal mood and affect Course Course Emergency Course: Patient and family updated on work-up and agree with plan of care Vital Signs Vital signs: Vital Signs Temperature 97.8 F 03/30/23 19:51 Pulse Rate 107 H 03/30/23 19:51 Respiratory Rate 19 03/30/23 19:51 Blood Pressure 135/97 H 03/30/23 19:51 Pulse Oximetry 100 03/30/23 19:51 Oxygen Delivery Room Air 03/30/23 19:51 Temperature 97.8 F 03/30/23 19:51 Pulse Rate 64 03/31/23 02:18 Respiratory Rate 15 03/31/23 02:18 Blood Pressure 150/78 H 03/31/23 02:18 Pulse Oximetry 99 03/31/23 02:18 Oxygen Delivery Room Air 03/30/23 19:51 MDM - Arrhythmia/Palpitations MDM Narrative Medical decision making narrative: Patient
[2023-03-31 02:18] VITALS: BP 150/78; PULSE 64; RESP 15; O2SAT 99
[2023-03-31 02:46] LABS: Creatine Kinase 167 U/L (55-170)
[2023-03-31 03:54] VITALS: BP 136/84; PULSE 64; RESP 16; O2SAT 98
== END 2023-03-31 03:55 | disposition home or self-care (01) ==
PROVIDERS: Emergency Medicine; Emergency Provider Physician Assistant; PCP Chiropractor
DX: R00.2 Palpitations (principal); F41.9 Anxiety disorder, unspecified; R42 Dizziness and giddiness; I10 Essential (primary) hypertension; F17.200 Nicotine dependence, unspecified, uncomplicated
CPT/HCPCS: 36415; 71046; 80053; 82550; 83690; 84484; 85025; 85610; 85730; 93005; 96360; 96361; 99284; A9270; J7030

== ENCOUNTER 2024-04-15 08:24 | Outpatient (CLI) | payer OTHER, SELFPAY ==
--- NOTE | ~2024-04-15 | XR_ITS ---
EXAMINATION: XR chest 2V DATE: 04/15/2024 09:15 INDICATION: Umbilical hernia with obstruction. TECHNIQUE: Frontal and lateral views of the chest were obtained. COMPARISON: Chest 2 views 03/30/2023, chest CT 04/15/2020 FINDINGS: There is no pneumonia, pleural effusion, or pneumothorax. The heart size is normal. There i s mild chronic anterior wedging of multiple mid thoracic vertebral bodies. IMPRESSION: 1. No acute cardiopulmonary disease. Reviewed, dictated and finalized at location A.
--- NOTE | 2024-04-15 08:31 | ECG_ITS ---
Test Date: 2024-04-15 08:57:03 Measurements Intervals [place] Rate: 67 P: 92 ID: 166 QRS: 22 QRSD: 112 T: 24 QT: 425 QTc: 450 Interpretive Statements SINUS RHYTHM INCOMPLETE RIGHT BUNDLE BRANCH BLOCK BASELINE ARTIFACT- I, II, III, AVR, AVL, AVF, V1-V6 BORDERLINE ECG No previous ECG available for comparison Electronically Signed On 04-15-2024 08:58:44 CDT by Varun Marquez D.O.
[2024-04-15 09:57] LABS: Basophils Absolute Auto 0.1 K/mm3 (0.0-0.1); Basophils Percent Auto 0.7 % (0.2-1.2); Eosinophils Absolute Auto 0.1 K/mm3 (0-0.3); Eosinophils Percent Auto 1.5 % (0-4.4); Hematocrit 45.4 % (42.0-52.0); Hemoglobin 15.6 g/dL (14.0-18.0); Immature Granulocyte Absolute 0.03 K/mm3 (0.00-0.031); Immature Granulocyte Percent A 0.3 % (0-0.5); Lymphocytes Absolute Auto 1.72 K/mm3 (0.9-3.2); Lymphocytes Percent Auto 19.7 % (18.3-44.2); Mean Corpuscular HGB Conc 34.4 g/dl (32-36); Mean Corpuscular Hemoglobin 31.6 pg (26-34); Mean Corpuscular Volume 92.1 fl (80-100); Mean Platelet Volume 11.1 fl (7.4-10.4); Monocytes Absolute Auto 0.7 K/mm3 (0.1-0.6); Monocytes Percent Auto 8.3 % (2.6-8.5); Neutrophils Absolute Auto 6.1 K/mm3 (1.3-6.7); Neutrophils Percent Auto 69.5 % (45.5-73.1); Platelet Count Result 273 k/mm3 (150-375); Red Blood Count 4.93 M/mm3 (4.6-6.20); Red Cell Distribution Width 13.7 % (11.5-14.5); White Blood Count 8.7 K/mm3 (4.5-10.0)
[2024-04-15 10:08] LABS: Alanine Aminotransferase 38 U/L (6-50); Albumin Level 4.6 g/dL (3.5-5.1); Alkaline Phosphatase 69 U/L (38-126); Anion Gap 10 mmol/L (4-12); Aspartate Amino Transferase 46 U/L (17-59); Bilirubin,Total 0.6 mg/dL (0.2-1.3); Blood Urea Nitrogen 9 mg/dL (9-20); Calcium 8.8 mg/dL (8.4-10.2); Carbon Dioxide 30 mmol/L (22-30); Chloride 88 mmol/L (98-107); Estimated Glomerular Filt Rate > 60; Glucose 99 mg/dL (65-110); Potassium 3.8 mmol/L (3.4-5.0); Sodium 128 mmol/L (137-145)
== END 2024-04-15 08:25 | disposition home or self-care (01) ==
PROVIDERS: PCP Student in an Organized Health Care Education/Training Program; Visit Provider Surgery
DX: Z01.818 Encounter for other preprocedural examination (principal); K42.9 Umbilical hernia without obstruction or gangrene; I45.10 Unspecified right bundle-branch block
CPT/HCPCS: 36415; 71046; 80053; 85025; 86850; 86900; 86901; 93005

== ENCOUNTER 2024-04-16 01:55 | Day surgery (SDC) | payer OTHER, SELFPAY ==
[2024-04-10 10:26] VITALS: BMI 30.9
--- NOTE | 2024-04-10 10:50 | SUR.PREOP ---
Report to the Outpatient Waiting Room, entrance under the green pavilion located off [facility], at time 0600 on date 04/16/2024. Planned Procedure Time: 0730.? Time changes happen often and if your time is changed the preop area will call you the afternoon before. - You and your visitor will be asked to self-screen and do not enter if you have any COVID symptoms. Please call surgeon if you need to reschedule. - A mask is optional within the hospital at this time. Patients may have clear liquids (water, carbonated beverages, clear teas, apple juice) until 3 hours prior to surgery with a maximum of 20 ounces. - No food from midnight until time of surgery and no smoking Take only the following medications with a SIP of water on the morning of surgery: Metoprolol, Diltiazem DO NOT STOP ANY OF YOUR OTHER PRESCRIPTION MEDICATIONS PRIOR TO SURGERY EXCEPT THE FOLLOWING Medications to discontinue per physician: N/A Please no make-up, nail urdu, hairspray, perfume, deodorant, or body powder the day of surgery.? No jewelry (including any body piercings) or valuables the day of surgery, leave them at home.? Please take a shower or bath the night before, or the morning of, surgery with an antibacterial soap.? Wear comfortable, loose fitting clothing.? Children are encouraged to wear pajamas. - Jewelry must be removed prior to entering the operating room.? Rings and piercings that are not removed may be cut off. - The hospital will not accept responsibility for valuables.? - Please leave all valuables, including medications, at home the day of surgery. If you are going home after surgery, a licensed refuse driver must drive you home.? - NO public transportation without another adult if you receive anesthesia. - We recommend that an adult stay with you for 24 hours following discharge. - We also recommend that you do not drive, make important decision, drink alcoholic beverages, or take any drugs that were not prescribed by your health care provider for at least 24 hours after your discharge time. Follow any additional instructions given to you from your surgeon. Telephone instructions given to patient and asked if any additional questions and then verbalized understanding. Patient advised to call surgeon office or pre surgery nurse liaison [phone] if any additional questions.
--- NOTE | 2024-04-15 15:15 | PM.SD2 ---
Same Day Admit/Disch: HPI History of Present Illness Chief complaint: Incar Umb Hernia Narrative: Richie Blackburn is a 63 year old male who has had an umbilical bulge for several years. It has gotten larger and is sometimes painful. He was seen in the office and I was unable to reduce the hernia. After discussion, he is taken to surgery at this time for robotic laparoscopic repair with mesh as an outpatient under general anesthesia. He has had no previous abdominal surgery. [facility] Past Medical History Medical History Anxiety Hypertension Has not been taking any medicine at home. Lipoma of back excised Surgical History Surgical History H/O hemorrhoidectomy Family History Family History Mother Heart disease CAD (coronary artery disease) Father Alzheimer's dementia Social History Social History Social History: patient Desires his to be the durable power commonwealth attorney for healthcare. The patient is full code. They have 1 child together. 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 He drinks approximately 6 or 7 beers a night. He stated that he does not go through any withdrawals. Does occasionally use marijuana. He denies using any other illicit drugs. Years smoked: 2 Smoking status: Former smoker Tobacco type: cigarettes and cigars Smokeless tobacco user: chewing tobacco Smoking end date: 03/06/75 Alcohol intake: current Drinks per week: 20 Substance use: current Substance use type: marijuana Other substance usage details: medical marijuana card- gummies for anxiety Do You Feel Safe in your Home?: Yes Lack of Transportation: No Lack of Food: Never True Current Housing: I Have Housing Concerned About Future Housing: No Difficulty Paying Gas/Electric Bills: No Difficulty Paying for Meds: No Currently Unemployed: No Education: High School Diploma/GED Difficulty w/ Childcare or Family Care: No Living arrangements: with family Occupation/Education: occupation 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 Gender identity (if verbalized by the patient): Male Spiritual care concerns: No Same Day Admit/Disch: Med Pre-admit Medications Home Medications Medication Instructions Recorded Confirmed Type diltiazem HCl 120 mg 120 mg PO DAILY #30 caps 04/16/20 04/10/24 Rx capsule,extended release 24 hr metoprolol succinate 25 mg 25 mg PO QAM #30 tabs 04/16/20 04/10/24 Rx tablet,extended release 24 hr (Toprol XL) hydrochlorothiazide 25 mg tablet 25 mg PO DAILY 04/10/24 04/10/24 History ibuprofen 600 mg tablet 600 mg PO Q6H PRN pain #14 tabs 04/16/24 Rx oxycodone-acetaminophen 5 mg-325 0.5 - 1 tablet PO Q6H PRN pain #10 04/16/24 Rx mg tablet tabs Review of Systems Review of Systems All systems reviewed & are unremarkable except as noted in HPI and below (HPI) Exam Const: General: comfortable, no acute distress, alert and awake HENMT: Head: normocephalic and atraumatic Mouth: Yes Normal oral and palatal mucosa present Eyes: Conjunctivae: conjunctivae normal Pupils: Equal, round and reactive pupils present EOM: EOMs intact bilaterally Neck: Neck: normal visual inspection, no lymphadenopathy and nontender Resp: Effort & Inspection: normal respiratory effort Auscultation: clear to auscultation bilaterally Cardio: Rate: regular rate Rhythm: regular rhythm Heart sounds: no gallops, no murmurs and no rubs GI: Inspection: non-distended and visible herniation (Umbilical, skin slightly dusky) GI Palp: Yes Soft to palpation, No Tenderness to palpation present (GI), No Hepatomegaly present, No Splenomegaly present and Yes Hernia present umbilical 3-10 cm (Not able to reduce. Nontender) Ski
[2024-04-16] VITALS (10 sets, daily range): BP systolic 108–161; BP diastolic 66–78; PULSE 55–75; RESP 11–16; TEMP 36.1–36.2; O2SAT 94–99; BMI 31.8
[2024-04-16] MEDS: LACTATED RINGERS 1,000 ML 30 ML IV CONT ×2 (06:50→09:15)
[2024-04-16 07:09] LABS: Sodium 132 mmol/L (137-145)
--- NOTE | 2024-04-16 07:09 | WPDHPUPDATE1 ---
History and Physical Update Update Date/Time: 04/16/24 07:09 History and Physical has been reviewed, including an updated exam of the patient. There are NO changes in the patient's condition. Risks, benefits, and alternatives have been discussed and questions answered. Patient agrees to proceed with procedure.
[2024-04-16] MEDS: ACETAMINOPHEN 500 MG TABLET 1000 MG PO (07:12)
[2024-04-16] MEDS: KETOROLAC 15 MG/ML VIAL (*BKC) IV PUSH (07:12)
--- NOTE | 2024-04-16 07:12 | WPDANESEPPF ---
Anes - Initial Pre Proc Eval Procedure: Operation Date: 04/16/24 07:30 Proposed Procedures p Robotic Laparoscopic Repair Incarcerated Umbilical Hernia with Mesh - Zoltan Arnold MD Date/Time: 04/16/24 07:12 Surgeon: Zoltan Arnold MD Pre Op Diagnosis: Incar Umb Hernia Patient Data Age: 63 Gender: M Height: 1.78 m Weight: 97.7 kg Allergies Allergy/AdvReac Type Severity Reaction Status Date / Time No Known Allergies Allergy Verified 04/10/24 10:24 Home Medications Medication Instructions Recorded Confirmed Type diltiazem HCl 120 mg 120 mg PO DAILY #30 caps 04/16/20 04/10/24 Rx capsule,extended release 24 hr metoprolol succinate 25 mg 25 mg PO QAM #30 tabs 04/16/20 04/10/24 Rx tablet,extended release 24 hr (Toprol XL) hydrochlorothiazide 25 mg tablet 25 mg PO DAILY 04/10/24 04/10/24 History Laboratory Tests 04/16/24 07:00 Sodium 132 L mmol/L (137-145) Patient hx anesthesia problems: none Family hx anesthesia problems: none Results Review: All pre-operative results and documents have been reviewed as part of the pre-operative evaluation. [facility] Past Medical History Medical History Anxiety Hypertension Has not been taking any medicine at home. Lipoma of back excised Surgical History Surgical History H/O hemorrhoidectomy Family History Family History Mother Heart disease CAD (coronary artery disease) Father Alzheimer's dementia Social History Social History Social History: patient Desires his to be the durable power resource analyst for healthcare. The patient is full code. They have 1 child together. 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 He drinks approximately 6 or 7 beers a night. He stated that he does not go through any withdrawals. Does occasionally use marijuana. He denies using any other illicit drugs. Years smoked: 2 Smoking status: Former smoker Tobacco type: cigarettes and cigars Smokeless tobacco user: chewing tobacco Smoking end date: 03/06/75 Alcohol intake: current Drinks per week: 20 Substance use: current Substance use type: marijuana Other substance usage details: medical marijuana card- gummies for anxiety Do You Feel Safe in your Home?: Yes Lack of Transportation: No Lack of Food: Never True Current Housing: I Have Housing Concerned About Future Housing: No Difficulty Paying Gas/Electric Bills: No Difficulty Paying for Meds: No Currently Unemployed: No Education: High School Diploma/GED Difficulty w/ Childcare or Family Care: No Living arrangements: with family Occupation/Education: occupation 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 Informed Consent: The patient's anesthetic plan and its attendant risks and benefits were discussed with the patient/family/POA. Questions were solicited and answers provided to the satisfaction of the patient/family/POA.
--- NOTE | 2024-04-16 07:20 | SUR.PREOP ---
0720- Notified Dr. Scott and Dr. Arnold patient's sodium 132 from today's blood draw. Per Dr. Scott and Dr. Arnold OK to proceed with surgery.
[2024-04-16] MEDS: ceFAZolin 2 GM/D5W 50 ML 2 GM/50 ML BAG IVPB (07:28)
--- NOTE | 2024-04-16 07:40 | SUR.PREOP ---
Addendum entered by Carmen Melissa RN 04/16/24 10:16: Note charted on patient in error. Original Note: 0740- Per Dr. Wells procedure cancelled for today with patient's symptoms having improved since she saw patient last. Patient aware of plan and agreeable to postpone surgery and be seen for outpatient therapy.
[2024-04-16] MEDS: BUPIVACAINE/EPINEPHRINE 0.5% 50 ML VIAL 20 ML INFILTRATE (08:10)
--- NOTE | 2024-04-16 09:28 | W.PM.PROC2 ---
Procedure Note - Detailed Date of Procedure 04/16/24 Pre-op Diagnosis Incar Umb Hernia 3 cm defect Post-op Diagnosis Other (Incarcerated umbilical hernia with 4 cm defect) Procedure Performed Robotic laparoscopic repair 4 cm umbilical hernia with 10 x [address] mesh Surgeon Zoltan Arnold MD Grease Cup Filler Marianne IQBAL Anesthesia General and Local Indications Patient has had an umbilical hernia for years. It is occasionally painful now and has been getting bigger with some purplish discoloration to the overlying skin. He is taken to surgery now for robotic laparoscopic repair. Findings Besides the main hernia defect which was 2.5 cm in length, there was another small, 5 mm defect a cm cephalad to the main umbilical hernia. Both hernias were repaired. Description of Procedure Patient was taken to surgery and induced into general anesthesia. The abdomen is prepped and draped. Patient was elevated on his left side and the table was flexed in the middle. Prep and drape was carried out. Trocars were placed in the usual fashion using applied Medical optical trocar for the initial left subcostal placement. Once intraperitoneal location was confirmed and the hernia was seen, we then placed a left flank 8 mm robotic port and a left lower quadrant 8 mm robotic port under direct visualization. The 5 mm initial port was then exchanged for an 8 mm robotic port, also under direct visualization. The robotic arms were then brought into the field. The camera was docked, placed, and targeted. The 2 working arms were then docked and the instruments were positioned appropriately near the hernia defect. The surgeon then went to the robotic console. There was quite a bit of omentum chronically incarcerated in the defect. This was taken down mostly with gentle traction and a small amount of cautery. In a oblique occur heard. Eventually, all the omentum was reduced. Some of the hernia sac was then reduced and excised as well. Properitoneal fat both caudal and cranial to the hernia defect was then dissected off the abdominal wall fascia so the edges of the defect could be easily seen and the mesh could be sutured to the abdominal wall rather than properitoneal fat. Cephalad of the main hernia defect, about 1 cm cephalad, another small defect was noted which was about 5 mm. The main hernia defect itself was 2.5 cm. We took down some of the falciform ligament so that there would be adequate fascia to suture the mesh. 0 Stratafix was then introduced into the abdomen. Suturing in a midline direction, I started just above the small hernia defect and continued a running suture to completely close both defects and then locked the suture line with the remaining suture in the midportion of the repair. A 15 x [address] mesh was then introduced into the field. The mesh was then attached to the anterior abdominal wall by using the Stratafix needle and placing it through the center of the mesh. The adhesion resistant side was facing the bowel. Once the mesh was brought up to the center of the repair, I then ran the remaining 0 Stratafix transversely towards the camera to fix that side of the mesh to the and her abdominal wall. V lock 2-0 suture were then introduced into the abdominal cavity. The V lock was then used to suture in running fashion the peripheral edge of the mesh to the anterior abdominal wall. I started at the edge for the cyst from me and then sewed in clockwise fashion all around the edge of the mesh, securing it to the anterior abdominal wall circumferentially. Three of the 2 0 V lock were required. The extra V lock suture were then used to suture the midportion of the mesh to the anterior abdominal wall up to the hernia repair. All looked good. There was no bleeding or other problems seen. We then removed all the suture needles. The robot was undocked and the instruments removed. CO2 was evacuated and the trocars were removed. Skin
[2024-04-16] MEDS: fentaNYL CITRATE INJ (*CRX) 100 MCG/2 ML VIAL 25 MCG IV PUSH ×8 (09:30→10:54)
[2024-04-16] MEDS: oxyCODONE HCL (*CRX) 5 MG TAB IR PO (11:11)
== END 2024-04-16 12:25 | disposition home or self-care (01) ==
PROVIDERS: PCP Student in an Organized Health Care Education/Training Program; Visit Provider Surgery
PROC: (CPT 49594; principal; 2024-04-16 07:30)
DX: K42.0 Umbilical hernia with obstruction, without gangrene (principal); F41.9 Anxiety disorder, unspecified; F12.90 Cannabis use, unspecified, uncomplicated; F17.220 Nicotine dependence, chewing tobacco, uncomplicated
CPT/HCPCS: 49594; S2900; 36415; 71046; 80053; 84295; 85025; 86850; 86900; 86901; 93005; 99213; A9270; C1781; G0463; J0690; J1100; J1170; J1885; J2250; J2405; J2704; J3010; J7120

== ENCOUNTER 2024-06-20 07:46 | Outpatient (CLI) | payer OTHER, SELFPAY ==
--- NOTE | ~2024-06-20 | PE_ITS ---
EXAMINATION: PET_PETPSMAST_PT DATE: 06/20/2024 13:09 INDICATION: Prostate cancer. TECHNIQUE: 4.727 mCi of Ga-68 gozetotide was administered intravenously. Low dose computed tomography (CT) images were acquired from the base of the brain to the proximal thighs for attenuation correcti on and anatomic localization. Automated exposure control was employed. Dose-length product (DLP) was 1261 mGy-cm. Positron emission tomography (PET) images were acquired in the same distribution. COMPARISON: Chest CT 04/15/2020 FINDINGS: Head/neck: There are no pathologically enlarged lymph nodes. Chest: There is no pneumonia or pleural effusion. The heart size is normal. There are coronary artery calcifications. No pericardial effusion. There are no pathologically enlarged lymph nodes. There is mild bilateral gynecomastia. Abdomen/pelvis/proximal thighs: There is diffuse hepatic steatosis. The gallbladder, spleen, pancreas , adrenal glands, and kidneys are normal. The prostate is mildly enlarged. There is increased activit y in the prostate on the right with maximum SUV of 7.6. There is diverticulosis of the colon without evidence of diverticulitis. The appendix is normal. There are no dilated loops of bowel. There are no pathologically enlarged lymph nodes. There is no free intraperitoneal fluid. There is prominent fat in left inguinal canal that may be a hernia. There is no osseous malignancy. IMPRESSION: 1. Mildly enlarged prostate with increased activity on the right, consistent with primary malignancy. No evidence of metastatic disease. Reviewed, dictated and finalized at location A. 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 Mildly enlarged prostate with increased activity on the right, consistent wi th primary malignancy. No evidence of metastatic disease.
== END 2024-06-20 07:47 | disposition home or self-care (01) ==
PROVIDERS: PCP Student in an Organized Health Care Education/Training Program; Visit Provider Urology
DX: C61 Malignant neoplasm of prostate (principal)
CPT/HCPCS: 78815; A9596

== ENCOUNTER 2024-08-14 08:26 | Outpatient (CLI) | payer OTHER, SELFPAY ==
[2024-08-14 09:56] LABS: Basophils Percent Auto 0.5 % (0.2-1.2); Eosinophils Absolute Auto 0.1 K/mm3 (0-0.3); Eosinophils Percent Auto 1.2 % (0-4.4); Hematocrit 43.7 % (42.0-52.0); Immature Granulocyte Absolute 0.03 K/mm3 (0.00-0.031); Immature Granulocyte Percent A 0.4 % (0-0.5); Lymphocytes Absolute Auto 1.52 K/mm3 (0.9-3.2); Lymphocytes Percent Auto 20.2 % (18.3-44.2); Mean Corpuscular HGB Conc 34.3 g/dl (32-36); Mean Corpuscular Hemoglobin 30.4 pg (26-34); Mean Corpuscular Volume 88.6 fl (80-100); Mean Platelet Volume 9.9 fl (7.4-10.4); Monocytes Absolute Auto 0.6 K/mm3 (0.1-0.6); Monocytes Percent Auto 8.5 % (2.6-8.5); Neutrophils Absolute Auto 5.2 K/mm3 (1.3-6.7); Neutrophils Percent Auto 69.2 % (45.5-73.1); Platelet Count Result 283 k/mm3 (150-375); Red Blood Count 4.93 M/mm3 (4.6-6.20); Red Cell Distribution Width 13.2 % (11.5-14.5); White Blood Count 7.5 K/mm3 (4.5-10.0)
[2024-08-14 10:07] LABS: Alanine Aminotransferase 34 U/L (6-50); Albumin Level 4.3 g/dL (3.5-5.1); Alkaline Phosphatase 69 U/L (38-126); Anion Gap 6 mmol/L (4-12); Aspartate Amino Transferase 38 U/L (17-59); Bilirubin,Total 0.7 mg/dL (0.2-1.3); Blood Urea Nitrogen 8 mg/dL (9-20); Calcium 8.8 mg/dL (8.4-10.2); Carbon Dioxide 31 mmol/L (22-30); Chloride 91 mmol/L (98-107); Estimated Glomerular Filt Rate > 60; Glucose 112 mg/dL (65-110); Potassium 3.6 mmol/L (3.4-5.0); Sodium 128 mmol/L (137-145)
[2024-08-14 10:09] LABS: INR 1.1; Prothrombin Time 14.2 Seconds (11.1-14.7)
[2024-08-14 10:10] LABS: Partial Thromboplastin Time 34.2 Seconds (22.3-36.8)
== END 2024-08-14 08:27 | disposition home or self-care (01) ==
LOC: ANHSURGERY 08:30
PROVIDERS: PCP Student in an Organized Health Care Education/Training Program; Visit Provider Urology
DX: Z01.812 Encounter for preprocedural laboratory examination (principal); C61 Malignant neoplasm of prostate
CPT/HCPCS: 36415; 80053; 85025; 85610; 85730; 86850; 86900; 86901; 87086

== ENCOUNTER 2024-09-09 07:00 | Inpatient (IN) | payer OTHER, SELFPAY ==
[2024-08-14 08:43] VITALS: BP 157/70; PULSE 69; RESP 16; TEMP 36.9; O2SAT 98; BMI 33.7
--- NOTE | 2024-08-14 09:02 | PC.NURSE ---
Report to the Outpatient Waiting Room, entrance under the green pavilion located off [facility], at time ___6:00AM____ on date ____08/26/24___. Planned Procedure Time: ___7:30AM .? Time changes happen often and if your time is changed the preop area will call you the afternoon before. - You and your visitor will be asked to self-screen and do not enter if you have any COVID symptoms. Please call surgeon if you need to reschedule. - A mask is optional within the hospital at this time. Patients may have clear liquids (water, carbonated beverages, clear teas, apple juice) until 3 hours prior to surgery (4:30AM) with a maximum of 20 ounces. - No food from midnight until time of surgery and no smoking. This includes no chewing gum, candy or mints. Take only the following medications with a SIP of water on the morning of surgery: ___DILTIAZEM, METOPROLOL DO NOT STOP ANY OF YOUR OTHER PRESCRIPTION MEDICATIONS PRIOR TO SURGERY EXCEPT THE FOLLOWING Medications to discontinue per physician NONE Date to take last dose Please no make-up, nail brazilian, hairspray, perfume, deodorant, or body powder the day of surgery.? No jewelry (including any body piercings) or valuables the day of surgery, leave them at home.? Please take a shower or bath the night before, or the morning of, surgery with an antibacterial soap.? Wear comfortable, loose fitting clothing.? Children are encouraged to wear pajamas. - Jewelry must be removed prior to entering the operating room.? Rings and piercings that are not removed may be cut off. - The hospital will not accept responsibility for valuables.? - Please leave all valuables, including medications, at home the day of surgery. If you are going home after surgery, a licensed trash collector truck driver must drive you home.? - NO public transportation without another adult if you receive anesthesia. - We recommend that an adult stay with you for 24 hours following discharge. - We also recommend that you do not drive, make important decision, drink alcoholic beverages, or take any drugs that were not prescribed by your health care provider for at least 24 hours after your discharge time. Follow any additional instructions given to you from your surgeon. Telephone instructions given to ___PATIENT and asked if any additional questions and then verbalized understanding. Patient advised to call surgeon office or pre surgery nurse liaison [phone] if any additional questions.
--- NOTE | 2024-09-03 12:32 | PC.NURSE ---
Report to the Outpatient Waiting Room, entrance under the green pavilion located off [facility], at time ___6:00AM____ on date __09/09/24 . Planned Procedure Time: ___7:30AM .? Time changes happen often and if your time is changed the preop area will call you the afternoon before. - You and your visitor will be asked to self-screen and do not enter if you have any COVID symptoms. Please call surgeon if you need to reschedule. - A mask is optional within the hospital at this time. Patients may have clear liquids (water, carbonated beverages, clear teas, apple juice) until 3 hours prior to surgery (4:30AM) with a maximum of 20 ounces. - No food from midnight until time of surgery and no smoking. This includes no chewing gum, candy or mints. Take only the following medications with a SIP of water on the morning of surgery: __DILTIAZEM, METOPROLOL DO NOT STOP ANY OF YOUR OTHER PRESCRIPTION MEDICATIONS PRIOR TO SURGERY EXCEPT THE FOLLOWING Medications to discontinue per physician NONE Date to take last dose Please no make-up, nail mauritian, hairspray, perfume, deodorant, or body powder the day of surgery.? No jewelry (including any body piercings) or valuables the day of surgery, leave them at home.? Please take a shower or bath the night before, or the morning of, surgery with an antibacterial soap.? Wear comfortable, loose fitting clothing.? Children are encouraged to wear pajamas. - Jewelry must be removed prior to entering the operating room.? Rings and piercings that are not removed may be cut off. - The hospital will not accept responsibility for valuables.? - Please leave all valuables, including medications, at home the day of surgery. If you are going home after surgery, a licensed truck driver rubbish collector must drive you home.? - NO public transportation without another adult if you receive anesthesia. - We recommend that an adult stay with you for 24 hours following discharge. - We also recommend that you do not drive, make important decision, drink alcoholic beverages, or take any drugs that were not prescribed by your health care provider for at least 24 hours after your discharge time. Hold all vitamins and supplements for 3 days per anesthesiologist. Follow any additional instructions given to you from your surgeon. Telephone instructions given to __PATIENT'S -SEAN and asked if any additional questions and then verbalized understanding. Patient advised to call surgeon office or pre surgery nurse liaison [phone] if any additional questions.
--- NOTE | 2024-09-08 13:44 | P.PNAN_ITS ---
Anes - Initial Pre Proc Eval Procedure: Operation Date: 09/09/24 07:30 Proposed Procedures p Robotic Assisted Nerve Sparing Prostatectomy, Possible Pelvic Lymph Node Dissection - Michael Dias MD Date/Time: 09/08/24 13:44 Surgeon: Michael Dias MD Pre Op Diagnosis: prostate CA Patient Data Age: 64 Gender: M Height: 1.74 m Weight: 102.2 kg Last Vital Signs Temp 98.5 F 08/14/24 08:43 Pulse 69 08/14/24 08:43 Resp 16 08/14/24 08:43 BP 157/70 H 08/14/24 08:43 Pulse Ox 98 08/14/24 08:43 O2 Del Method Room Air 08/14/24 08:43 Allergies Allergy/AdvReac Type Severity Reaction Status Date / Time No Known Allergies Allergy Verified 09/09/24 06:57 Home Medications ?Medication ?Instructions ?Recorded ?Confirmed ?Type diltiazem HCl 120 mg 120 mg PO DAILY #30 caps 04/16/20 09/09/24 Rx capsule,extended release 24 hr metoprolol succinate 25 mg 25 mg PO QAM #30 tabs 04/16/20 09/09/24 Rx tablet,extended release 24 hr (Toprol XL) hydrochlorothiazide 25 mg tablet 25 mg PO DAILY 04/10/24 09/09/24 History Patient hx anesthesia problems: none Family hx anesthesia problems: none Results Review: All pre-operative results and documents have been reviewed as part of the pre- operative evaluation. [facility] Past Medical History Medical History Anxiety Hypertension Has not been taking any medicine at home. Lipoma of back excised Surgical History Surgical History H/O hemorrhoidectomy Hx of umbilical hernia repair Robotic laparoscopic repair 4 cm umbilical hernia with 10 x [address] mesh on 04/16/[address] Arnold Family History Family History Mother Heart disease CAD (coronary artery disease) Father Alzheimer's dementia Social History Social History (Updated 05/22/24 @ 09:54 by Mine Mcmahan MA) Social History: patient Desires his to be the durable power trade mark attorney for healthcare. The patient is full code. They have 1 child together. 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 He drinks approximately 6 or 7 beers a night. He stated that he does not go through any withdrawals. Does occasionally use marijuana. He denies using any other illicit drugs. Smoking packs per day: 0.2 Smoking cigarettes per day: 4.0 Years smoked: 2 Smoking pack-years: 0.40 Smoking status: Former smoker Tobacco type: cigarettes and cigars Smokeless tobacco user: chewing tobacco Smoking end date: 03/06/75 Alcohol intake: current Drinks per week: 20 Alcohol use details: USED TO DRINK HEAVIER/ALCOHOL ABUSE Substance use: current Substance use type: marijuana Other substance usage details: medical marijuana card- gummies for anxiety Current Housing: Decline to Answer Concerned About Future Housing: Decline to Answer Difficulty Paying Gas/Electric Bills: Decline to Answer Difficulty Paying for Meds: Decline to Answer Currently Unemployed: Decline to Answer Education: Decline to Answer Difficulty w/ Childcare or Family Care: Decline to Answer Living arrangements: with family Additional living arrangements comments: Occupation/Education: 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 Informed Consent: The patient's anesthetic plan and its attendant risks and benefits were discussed with the patient/family/POA. Questions were solicited and answers provided to the satisfaction of the patient/family/POA.
[2024-09-09] VITALS (12 sets, daily range): BP systolic 116–139; BP diastolic 45–77; PULSE 62–88; RESP 14–18; TEMP 36.4; O2SAT 95–100; BMI 32.3; BMI 35.8
--- OUTSIDE RECORDS SUMMARY | 2024-09-09 00:23 | XMS_ITS | Clinical Summary ---
Author Organization [facility] Address [address] [place] [address]. [place] [address] [place] [address] Care Team Providers Care Chicken Cutter Name Role Phone Jacque Calvin MD Primary Care Provider + Allergies No known active allergies Medications metoprolol succinate ER (TOPROL-XL) 25 MG 24 hr tabletIndications :Essential hypertension,Supr aventricular tachycardia ([facility]) Take 1 tablet (25 mg total) by mouth daily. 90 tablet 3 4 02/19/20 25 Active dilTIAZem CD (CARDIZEM CD) 180 MG 24 hr capsuleIndication s:Essential hypertension Take 1 capsule (180 mg total) by mouth daily. 90 capsule 3 4 02/19/20 25 Active hydroCHLOROthiazi de (HYDRODIURIL) 25 MG tabletIndications :Essential hypertension Take 1 tablet (25 mg total) by mouth every morning. 90 tablet 3 4 02/19/20 25 Active Active Problems Problem Noted Date Diagnosed Date Prostate cancer ([facility]) 06/11/2024 Essential hypertension 02/19/2024 Overview (02/19/2024): Takes HCTZ, metoprolol, diltiazem. BP at home is upper 140s. Patient admits that he is taking metoprolol tartrate but he is only taking it once daily. Assessment & Plan (02/19/2024 12:13 PM CDT): Not controlled today. Pt reports white coat hypertension. He also indicates blood pressure tends to run 140s over 80s. Continue hydrochlorothiazide, diltiazem. Will switch metoprolol to long-acting form since he is only taking it once daily anyway. Ordered BMP. Alcohol abuse 02/19/2024 Overview (02/19/2024): 3-5 alcoholic beverages daily. Can get up to 6-12 on a weekend. Assessment & Plan (02/19/2024 12:14 PM CDT): Encouraged reduced use and ordered CMP to evaluate liver function. Anxiety 02/19/2024 Overview (02/19/2024): Patient reports he was previously using Zoloft prefers not to take any medication. Instead he uses cannabis to manage symptoms. Cannabis abuse 02/19/2024 Overview (02/19/2024): Patient uses cannabis to manage anxiety. Supraventricular tachycardia (CMS/HCC HHS/HCC) 0 02/19/2024 Overview (02/19/2024): Dr. Howard. Had a stress test. Has not seen cardiology and does not plan to follow-up there any longer. Well-controlled with metoprolol and diltiazem. Assessment & Plan (02/19/2024 12:13 PM CDT): Controlled. Will continue diltiazem and metoprolol and [place] back with cardiology if needed. Encounters Date Type Department Care Team Description 06/20/2024 Scan VIVA INFO SRVCS Scanned, [facility] Procedure (SCAN) from Last 3 Months Immunizations Name Administration Dates Next Due Tdap (Boostrix) 02/19/2024 Family History Medical History Relation Comments No Known Problems Child Dementia Father Depression Father CHF Mother Heart Disease Mother Ovarian Cancer Sister 1 Relation Status Comments Child Alive Father Mother Sister 1 Sister 2 Alive Social History Tobacco Use Types Packs/Day Years Used Date Smoking Tobacco: Some Days Cigars Smokeless Tobacco: Never Tobacco Cessation:Ready to Q uit: No; Counseling Given: No Alcohol Use Standard Drinks/Week Comments Yes 50 (1 standard drink = 0.6 oz pu re alcohol) about 4 beers daily PHQ-2 Answer Date Recorded Patient Health Questionnaire-2 Score 3 02/19/2024 Sex and Gender Information Value Date Recorded Sex Assigned at Not on file Legal Sex Male 1:10 PM CDT Gender Identity Not on file Sexual Orientation Not on file Last Filed Vital Signs Vital Sign Reading Time Taken Comments Blood Pressure 128/79 06/11/2024 9:48 AM PAYMENT REP Pulse 66 02/19/2024 11:19 AM CDT Temperature 37.2 ??C (99 ??F) 02/19/2024 11:19 AM CDT Respiratory Rate 24 02/19/2024 11:19 AM CDT Oxygen Saturation 99% 02/19/2024 11:19 AM CDT Inhaled Oxygen Concentration - - Weight 102.5 kg (226 lb) 02/19/2024 11:19 AM CDT Height 175.3 cm (5' 9 ) 02/19/2024 11:19 AM CDT Body Mass Index 33.37 02/19/2024 11:19 AM CDT Plan of Treatment Health Maintenance Due Date Last Done Comments Pneumococcal Vaccine: Pediat rics (0 to 5 Years) and At-Risk Patients (6 to 64 Years) (1 of 2 - PCV) 1966 Hepatitis C 1978 Zoster Vaccines (1 of 2) 2010 COVID-19 Vaccine (1 - 2023-2 5 season) 2024 Influenza Adult (#1) 2024 PHQ-2 (Physician [place]) 08/06/2024 02/19/2024 Annual Physical 02/18/2025 02/19/2024 PHQ-2 (Physician [place]) 02/18/2025 02/19/2024 Colorectal Cancer Screening FIT-DNA (3 Years) 03/05/2027 03/05/2024 DTaP, Tdap and Td Vaccines ( 2 - Td or Tdap) 02/18/2034 02/19/2024 RSV Immunization or 60+ Years (1 - 1-dose 75+ series) 2035 Meningococcal B Vaccine Aged Out No l onger eligible based on patient's age to complete this topic Meningococcal Vaccine Aged Out No samanhta shanika eligible based on patient's age to complete this topic RSV Immunizations Under 20 Months Aged Out No longer eligible based on patient's age to complete this topic Procedures Procedure Name Priority Date/Time Associated Diagnosis Comments PROCEDURE GENERIC (SCAN ORDER) 06/20/2024 COLOGUARD (EXACT SCIENCE) Routine 03/05/2024 6:20 AM CDT Colon cancer screening from Last 3 Months or Most Recently Relevant to Health Maintenance Results * PROCEDURE GENERIC (SCAN ORDER) (06/20/2024) 06/20/2024 us [facility] Scanned SCANNING Final Resu lt * COLOGUARD (EXACT SCIENCE) (03/05/2024 6:20 AM CDT) COLOGUARD RESULT Negative Negative [facility] (CLIA #:[id number]) Comment: NEGATIVE TEST RESULT. A negative Cologuard result indicates a low likelihood that a colorectal cancer (CRC) or advanced adenoma (adenomatous polyps with more advanced pre-malignant features) ??is present. The chance that a person with a negative Cologuard test has a colorectal cancer is less than 1 in 1500 (negative predictive value >99.9%) or has an ??advanced adenoma is less than ??5.3% (negative predictive value 94.7%). These data are based on a prospective cross-sectional study of 10,000 individuals at average risk for colorectal cancer who were screened with both Cologuard and colonoscopy. (Marivel Araujo al, N Engl J Med 2014;370(14):1286- 1297) The normal value (reference range) for this assay is negative. COLOGUARD RE-SCREENING RECOMMENDATION: Periodic colorectal cancer screening is an important part of preventive healthcare for asymptomatic individuals at average risk for colorectal cancer. ??Following a negative Cologuard result, the [place] [employer] Society and U.S. Multi-Society Task Force screening guidelines recommend a Cologuard re-screening interval of 3 years. References: [place] [employer] Guideline for Colorectal Cancer Screening: https://www.cancer.org/cancer/pmdyw-ktzhkv-wntxjj/kdavveznx-pvtpvabka-jthxdgb/ac s-rec ommendations.html.; Domingo DK, Khadra CR, Nancy BookerK, Colorectal Cancer Screening: Recommendations for Physicians and Patients from the U.S. Multi-Society Task Force on Colorectal Cancer Screening , Am J Gastroenterology 2017; 112:9981-1252. TEST DESCRIPTION: Composite algorithmic analysis of stool DNA-biomarkers with hemoglobin immunoassay. ?? Quantitative values of individual biomarkers are not reportable and are not associated with individual biomarker result reference ranges. Cologuard is intended for colorectal cancer screening of adults of either sex, 45 years or older, who are at average-risk for colorectal cancer (CRC). Cologuard has been approved for use by the U.S. FDA. The performance of Cologuard was established in a cross sectional study of average-risk adults aged 50-84. Cologuard performance in patients ages 45 to 49 years was estimated by sub-group analysis of near-age groups. Colonoscopies performed for a positive result may find as the most clinically significant lesion: colorectal cancer [4.0%], advanced adenoma (including sessile serrated polyps greater than or equal to 1cm diameter) [20%] or non- advanced adenoma [31%]; or no colorectal neoplasia [45%]. These estimates are derived from a prospective cross-sectional screening study of 10,000 individuals at average risk for colorectal cancer who were screened with both Cologuard and colonoscopy. (Marivel Araujo al, N Engl J Med 2014;370(14):5812-0912.) Cologuard may produce a false negative or false positive result (no colorectal cancer or precancerous polyp present at colonoscopy follow up). A negative Cologuard test result does not guarantee the absence of CRC or advanced adenoma (pre-cancer). The current Cologuard screening interval is every 3 years. ([place] [employer] and U.S. Multi-Society Task Force). Cologuard performance data in a 10,000 patient pivotal study using colonoscopy as the reference method can be accessed at the following location: [email or web address]/results. Additional description of the Cologuard test process, warnings and precautions can be found at www.[email or web address].com. STOOL STOOL SPECIMEN / Unknown 03/05/2024 6:20 AM CDT 03/06/2024 9:46 AM CDT us Jacque Calvin MD BODY FLUIDS AND STOOLS O RDERABLES Final Result [facility] ([facility]) [address] [place] [address], [facility] (CLIA #:[id number]) [address] 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
--- OUTSIDE RECORDS SUMMARY | 2024-09-09 00:23 | XMS_ITS | Data Portability ---
Author Organization [place] - [facility] OFFICE Address [address] [place] [address] Care Team Providers Care Administrative Office Clerk Name Role Phone SENIA COMER Primary Care Provider [phone] Assessment Encounter Date Assessment Date Assessment LastModified by Organization Details LastModified Time 04/24/2023 04/24/2023 Patient Examined by JOHANN Wayne, Also Documentation reviewed and approved by supervising physician beverly Not available 04/24/2023 12:10:11 Plan of Treatment Reminders Order Date Submit Date Provider Last Modified By Organization Details Last Modified Time Details Appointments None recorded. Lab None recorded. Referral None recorded. Procedures None recorded. Surgeries None recorded. Imaging None recorded. Medication Orders diltiazem CD 120 mg capsule,ex tended release 24 hr 2019 020 [id number] [address] [place], [place], [id number], 0 16:57:05 hydrochlor othiazide 25 mg tablet 2019 020 [facility][id number] [address] [place], [place], [id number], 0 16:57:05 diltiazem CD 120 mg capsule,ex tended release 24 hr 2020 021 [facility], [address], [address], [place], [address], 1 16:53:49 hydrochlor othiazide 25 mg tablet 2020 021 [facility], [address], [address], [place], [address], 16:53:53 metoprolol succinate ER 25 mg tablet,ext ended release 24 hr 2020 021 [facility], [address], [address], [place], [address], 13:20:11 diltiazem CD 120 mg capsule,ex tended release 24 hr 2021 022 [facility], [address], [address], [place], [address], 2 11:35:08 metoprolol tartrate 25 mg tablet 2021 022 [facility], [address], [address], [place], [address], 2 09:44:45 hydrochlor othiazide 25 mg tablet 2021 022 [facility], [address], [address], [place], [address], 2 11:35:10 diltiazem CD 120 mg capsule,ex tended release 24 hr 2022 023 [facility], [address] [place] [address], [address], 3 10:39:34 hydrochlor othiazide 25 mg tablet 2022 023 [facility], [address] [place] [address], [address], 3 10:39:34 diltiazem CD 180 mg capsule,ex tended release 24 hr 2022 023 [facility] #[id number], [address], [place], [id number], 3 12:23:10 hydrochlor othiazide 25 mg tablet 2022 023 [facility], [facility] [place], [address], 3 12:23:08 Patient TargetsNo targets recorded. Patient Instructions Encounter Date Encounter Id Patient Instructions Last Modified By Organization Details Last Modified Time 04/25/2022 [id number] Exercise advised Low cholesterol diet advised Low sodium diet advised. [email or web address] Not available 04/25/2022 11:36:00 10/24/2022 [id number] Weight loss 20? ? ?pounds Exercise advised Low cholesterol diet advised Low sodium diet advised. [email or web address] Not available 10/24/2022 11:49:12 04/24/2023 [id number] Low cholesterol diet advised Low sodium diet advised. [email or web address] Not available 04/24/2023 12:11:40 Reason for Referral None Reported. Results Created Date Observation Date Name Description Value Unit Range Abnormal Flag Note LastModifiedBy Organization Detail LastModifiedTime 04/19/2004/15/2020 US, echoc ardio gram No observ ation record ed. [email or web address] Not Available 2019 13:41:47 05/19/2004/15/2020 CT, angio gram, chest , w/wo contr ast No observ ation record ed. Not Available 2019 12:21:15 05/19/2004/15/2020 XR, chest , 1 view No observ ation record ed. Not Available 2019 12:22:27 05/19/2004/15/2020 elect rocar diogr am No observ ation record ed. Not Available 2019 12:29:29 06/16/2006/14/2021 elect rocar diogr am No observ ation record ed. [email or web address] Not Available 2020 15:29:57 10/13/19 22 09/27/2021 exerc ise stres s test No observ ation record ed. [email or web address] Not Available 2021 10:53:46 04/27/20 22 04/25/2022 elect rocar diogr am No observ ation record ed. [email or web address] Not Available 2021 14:38:55 05/23/2005/22/2022 US, echoc ardio gram No observ ation record ed. [facility] [address], [place], [address], 05/24/2022 17:31:07 10/26/19 23 10/24/2022 elect rocar diogr am No observ ation record ed. [email or web address] Not Available 2022 15:33:48 04/30/20 23 04/24/2023 elect rocar diogr am No observ ation record ed. [email or web address] Not Available 2022 09:40:06 Result Notes None recorded. Problems Name Problem SNOMED Code Status Onset Date Resolution Date Notes Provider Name and Address Organization Details Recorded Time Alcohol abuse 25288447 Active Nataly Chaim null, [place] - [facility] 0 12:52:18 Cannabis abuse 12436149 Active Nataly [place] [facility] 0 12:52:45 Anxiety 47678766 Active f41.9 Nataly [place] null[place] - [facility] 0 12:52:59 Essential hypertension 87447193 Active 2019 I10 Sanam Armstrong null, [place] - [facility] 3 15:35:01 Supraventricula r tachycardia 8008166 Active I47.1 Nataly [place] [facility] 0 12:53:35 Chest pain 92043239 Active R07.9 Nataly [place] null, [place] - [facility] 0 12:53:49 Problem Notes None recorded. Procedures Surgical History Date Name Laterality Status Provider Name and Address Organization Details Recorded Time hemorrhoidectomy completed Nataly Camarillos [place] - [facility] 05/14/2020 12:58:58 Imaging Results Imaging Date Name Status LastModified by Organization Details LastModified Time 04/15/2020 US, echocardiogram completed [facility] Inform ation not available 05/15/2020 13:41:47 04/15/2020 CT, angiogram, chest, w/wo contrast completed Information not available 05/19/2020 12:21:15 04/15/2020 XR, chest, 1 view completed Informa tion not available 05/19/2020 12:22:27 04/15/2020 electrocardiogram completed Informa tion not available 05/19/2020 12:29:29 06/14/2021 electrocardiogram completed Informa tion not available 06/16/2021 15:29:57 09/27/2021 exercise stress test completed Info rmation not available 10/12/2021 10:53:46 04/25/2022 electrocardiogram completed Informa tion not available 04/27/2022 14:38:55 05/22/2022 US, echocardiogram completed [facility], [place], [address], 05/24/2022 17:31:07 10/24/2022 electrocardiogram completed Informa tion not available 10/25/2022 15:33:48 04/24/2023 electrocardiogram completed Informa tion not available 04/30/2023 09:40:06 Procedure Notes None recorded. Medical Equipment None Reported. Allergies No known drug allergies Medications Name Sig Start Date Stop Date Status Note LastModified by Organization Details LastModified Time diltiazem CD 180 mg capsule,ex tended release 24 hr TAKE 1 CAPSULE BY MOUTH EVERY DAY active Not Available Not Available No t Available hydrocodon e 5 mg-acetami nophen 325 mg tablet TAKE 1 TO 2 TABLETS BY MOUTH EVERY 4 TO 6 HOURS NEEDED FOR PAIN. MAX 8 TABLETS PER DAY active Not Available Not Available No t Available blood pressure monitor kit active Not Available Not Available Not Available amoxicilli n 875 mg tablet TAKE 1 TABLET BY MOUTH TWICE DAILY TILL GONE active Not Available Not Available No t Available lorazepam 0.5 mg tablet TAKE 1 TABLET BY MOUTH TWICE DAILY NEEDED FOR ANXIETY active Not Available Not Available No t Available diltiazem CD 120 mg capsule,ex tended release 24 hr Take 1 capsule( s) every day by oral route as directed . 2022 active Not Available Not Available Not Avai lable hydrochlor othiazide 25 mg tablet Take 1 tablet every day by oral route. active Not Available Not Available No t Available metoprolol succinate ER 25 mg tablet,ext ended release 24 hr Take 1 tablet every day by oral route in the morning. 07/18 completed pt no longer takes 06/14/20 21 nj Not Available Not Available Not Available metoprolol tartrate 25 mg tablet TAKE 1 TABLET BY MOUTH TWO TIMES A DAY 2023 active Not Available Not Available Not Avai lable Vitals Date Recorded Body weight Heart rate Respiratory rate Oxygen saturation Oxygen saturation in Arterial blood by Pulse oximetry Body temperature Body mass index (BMI) Body height Systolic blood pressure Diastolic blood pressure Provider Name and Address Organization Details Last Updated DateTime 0 75986.5 8 g 81 /min 18 /min 98 % 98 % 96.9 [degF] 31.3 kg/m2 175.26 cm 180 mm[Hg] 90 mm[Hg] Shyann Roy [facility] 0 16:33:57 Date Recorded Body weight Heart rate Oxygen saturation Oxygen saturation in Arterial blood by Pulse oximetry Systolic blood pressure Diastolic blood pressure Provider Name and Address Organization Details Last Updated DateTime 1 07404.0 3 g 82 /min 100 % 100 % 170 mm[Hg] 80 mm[Hg] KHURRAM CHRISTENSEN [facility] 1 16:33:14 Date Recorded Body height Body mass index (BMI) Body weight Heart rate Respiratory rate Oxygen saturation Oxygen saturation in Arterial blood by Pulse oximetry Systolic blood pressure Diastolic blood pressure Provider Name and Address Organization Details Last Updated DateTime 2 175.26 cm 31.9 kg/m2 13229.9 5 g 81 /min 16 /min 97 % 97 % 132 mm[Hg] 82 mm[Hg] Rai Li [facility] 2 11:18:06 Date Recorded Body height Body mass index (BMI) Body weight Heart rate Respiratory rate Oxygen saturation Oxygen saturation in Arterial blood by Pulse oximetry Systolic blood pressure Diastolic blood pressure Provider Name and Address Organization Details Last Updated DateTime 3 175.26 cm 33.5 kg/m2 970141. 47 g 72 /min 16 /min 98 % 98 % 124 mm[Hg] 84 mm[Hg] Rai Li [facility] 3 11:23:20 Date Recorded Body height Body mass index (BMI) Body weight Heart rate Respiratory rate Oxygen saturation Oxygen saturation in Arterial blood by Pulse oximetry Systolic blood pressure Diastolic blood pressure Provider Name and Address Organization Details Last Updated DateTime 3 175.26 cm 33.8 kg/m2 404778. 65 g 73 /min 16 /min 96 % 96 % 168 mm[Hg] 92 mm[Hg] Rai Li [facility] 3 11:48:21 Social History Question Answer Notes LastModified by Eletrogóes Details LastModified Time Tobacco Smoking Status Current Every Day Smoker Not Available [facility] 06/08/2020 03:30:18 What Is Your Level Of Alcohol Consumption? Moderate [id number] Information not available 06/08/2020 What Is Your Level Of Caffeine Consumption? Occasional [id number] Information not available 06/08/2020 What Type Of Diet Are You Following? REGULAR [id number] Information not available 06/08/2020 Which Illicit Or Recreational Drugs Have You Used? MARIJUANA [id number] Information not available 06/08/2020 Do You Or Have You Ever Used E-cigarettes Or Vape? 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 With Others [email or web address] Information not available 05/14/2020 Marital Status [email or web address] Informatio n not available 05/14/2020 What Was The Date Of Your Most Recent Tobacco Screening? 05/17/2020 [email or web address] Information not available 06/27/2020 Do You Or Have You Ever Used Smokeless Tobacco? Currently Chews Tobacco [id number] Information not available 06/08/2020 General Stress Level Low [email or web address] Information not available 05/14/2020 Sex: Unknown Functional Status Question Answer Note LastModified by Eletrogóes Details LastModified Time What is your exercise level? Occasional [id number] Information not available 06/08/2020 Mental Status None recorded. Family History Relationship Description Onset Age of this Age Resolved Age Notes LastModified by Organization Details LastModified Time Father Alzheimer's disease [email or web address] Not available 05/14 12:56:29 Mother Coronary arterioscler osis [email or web address] Not available 05/14 12:56:41 Mother Heart disease [email or web address] Not available 05/14 12:56:49 Medical History Condition Response Arrhythmia Y Hypertension Y Past Encounters Encounter ID Performer Location Encounter Start Date Encounter Closed Date Diagnosis/Indication Diagnosis SNOMED-CT Code Diagnosis ICD10 Code Diagnosis Note [id number] Arcelia Silva [place] [facility] [place] [address] 05/17/2020 16:31:52 05/17/2020 17:10:15 Essential hypertension 13549750 I10 with white coat syndrone.C heck BP at home. Pt planing to get machine.Wi ll start HCTZ 25 mg daily Supraventr icular tachycardia 5413916 I47.1 paroxysmal in the setting of alcohol iylpb7Z echo with no structural diseaseCon tinue CardizemD/ C Metoprolol . Start HCTZ for better BP control Alcohol abuse 20370255 F 10.10 [id number] Maximilian Howard MD [place] [facility] [place] [address] 06/14/2021 16:10:53 06/14/2021 16:56:21 Essential hypertension 80240649 I10 with white coat syndrone.W ill start HCTZ 25 mg daily Supraventr icular tachycardia 8549138 I47.1 paroxysmal in the setting of alcohol bwkrk9K echo with no structural diseaseCon tinue CardizemD/ C Metoprolol . Start HCTZ for better BP control Alcohol abuse 76281611 F 10.10 Dyspnea on exertion 6084 5006 R06.09 Treadmill Myoview Stress test, has high Galva Risk score. Has Known CAD, or CAD risk equivalent . To look for any ischemia. [id number] Maximilian Howard MD [place] [facility] [place] [address] 04/25/2022 10:52:01 04/25/2022 11:40:32 Essential hypertension 87194715 I10 with white coat syndrone.W ill start HCTZ 25 mg daily Supraventr icular tachycardia 1793336 I47.1 paroxysmal in the setting of alcohol yracr6Q echo with no structural diseaseCon tinue CardizemD/ C Metoprolol . Start HCTZ for better BP control Alcohol abuse 66738117 F 10.10 Dyspnea on exertion 6084 5006 R06.09 Obtain echo to evaluate for structural /functiona l disease. [id number] Maximilian Howard MD [place] [facility] [address] [place] [address] 10/24/2022 11:04:25 10/24/2022 11:52:03 Essential hypertension 11627655 I10 with white coat syndrone.O n HCTZ 25 mg daily Supraventr icular tachycardia 4387406 I47.1 Continue Cardizem Alcohol abuse 21389960 F 10.10 He cut down Dyspnea on exertion 6084 5006 R06.09 Normal Left ventricula r systolic function [id number] SAHIL SALAZAR [place] [facility] [address] [place] [address] 04/24/2023 11:33:02 04/24/2023 12:35:57 Essential hypertension 68169537 I10 with white coat syndrone.O n HCTZ 25 mg daily Supraventr icular tachycardia 3678844 I47.1 Continue Cardizem Alcohol abuse 46976120 F 10.10 He cut down Dyspnea on exertion 6084 5006 R06.09 Normal Left ventricula r systolic function Dizziness 717002455 R42 will do heart monitor for one week Pre-surger y evaluation 573356341 Z01.818 There is no cardiac contraindi cation for the procedure. The planned procedure would be within acceptable risk. {{ Patient may stop taking aspirin and Plavix five (5) days prior to the procedure. }} Health Concerns Section Related Observation LastModified by Organization Detai ls LastModified Time None Recorded Concern Status LastModified by Organization Details LastModified Time None Recorded Advance Directives Directive None Recorded Payers Encounter Date Sequence Insurance Name Policy Number Policy Finn Covered Member ID Finn Member ID Guarantor Name 05/17/2020 1 [employer] (PP[employer]) Larry Blackburn [id number] Richie Blackburn 06/14/2021 1 [employer] Larry Blackburn [id number] Richie Blackburn 04/25/2022 1 [employer] (PP[employer]) Larry Blackburn [id number] Richie Blackburn 10/24/2022 1 [facility] [id number] Brenda Blackburn [id number] Richie Blackburn 04/24/2023 1 [facility] [id number] Brenda Blackburn [id number] Richie Blackburn Notes Date Note Type Note Provider Name and Address Organization Details Recorded Time 05/17/2020 text/html 05/17/20 CC: [facility] 59 year-old man with history of presents for cardiac consultation for hospital followup. Patient has history of HTN, alcohol abuse and anxiety disorder. He Was admitted to [facility] with SVT HR 160. He received initially adenosine in ER then went back in SVT while on the floor. Was discharged on metoprolol and cardizem. he was not on any meds prior to this. His BP is quite elevated today. He states that he has severe case of white coat HTN. He feels very anxious coming to see doctors. 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 Denies smoking cigarettes but admits to Marijuana Results from this visit, or from the past: 04/15/20 ECHO: Complete two-dimensional color flow and doppler transthoracic echocardiogram is performed. Left ventricular chamber dimension is normal. LVEF is normal, estimated at 55-60%. Mild sclerosis of the mitral valve. There is trace mitral valve regurgitation. There is mild aortic valve sclerosis. Grade II diastolic dysfunction of the LV (pseudonormal filling pattern). Arcelia Silva [facility] [place] - [facility] 05/17/2020 17:10:13 06/14/2021 text/html 06/14/21CC : Car diac follow up, dyspnea on [id number] year-old man with h/o Hypertension, SVT, Anxiety, and Alcohol abuse is here for follow up. He was last seen in the clinic on 05/17/20 , since then he had BP elevations, he was off his medsHe denies ER visits and hospitalizations since he was last seen.Today reports:Denies chest pain.Denies shortness of breath at rest. Has mild dyspnea on exertion.No orthopnea. No PNDs.Denies heart palpitations.Denies dizziness. Denies syncope or near syncope.No ankle or leg edema.No major bleeding events.No reported side effects from medications. Taking medications as prescribed with no missed doses.Denies snoring, daytime somnolence and AM headache.*Last LDL was 87 done on 04/14/20 .Pt dose not takes any statins. Previously :He Was admitted to [facility] with SVT HR 160. He received initially adenosine in ER then went back in SVT while on the floor. Was discharged on metoprolol and cardizem. he was not on any meds prior to this.His BP is quite elevated today. He states that he has severe case of white coat HTN. He feels very anxious coming to see doctors. He checked his BP at pharmacy last week and it was normalHe is a construction management instructor. He is trying to decrease alcohol intake. Denies smoking cigarettes but admits to Marijuana Results from this visit, or from the past: 04/15/20 ECHO: Complete two-dimensional color flow and doppler transthoracic echocardiogram is performed. Left ventricular chamber dimension is normal. LVEF is normal, estimated at 55-60%. Mild sclerosis of the mitral valve. There is trace mitral valve regurgitation. There is mild aortic valve sclerosis. Grade II diastolic dysfunction of the LV (pseudonormal filling pattern). Maximilian Howard MD [address] [place], [address], [facility] 06/14/2021 16:54:27 04/25/2022 text/html 04/25/22CC : Car diac follow up, dyspnea on [id number] year-old man with h/o Hypertension, SVT, Anxiety, and Alcohol abuse is here for follow up with stress test results. He was last seen in the clinic on 06/14/21 , since then he was out of his MetoprololHe denies ER visits and hospitalizations since he was last seen. Today reports:Denies chest pain.Denies shortness of breath at rest. Has mild dyspnea on exertion.No orthopnea. No PNDs.Denies heart palpitations.Denies dizziness. Denies syncope or near syncope.No ankle or leg edema.No major bleeding events.No reported side effects from medications. Taking medications as prescribed with no missed doses.Denies snoring, daytime somnolence and AM headache.*Last LDL was 87 done on 04/14/20 .Pt dose not takes any statins. *Had negative stress test done on 09/27/21 with Normal LV systolic function. Exercise tolerance: Poor. Previously:He Was admitted to [facility] with SVT HR 160. He received initially adenosine in ER then went back in SVT while on the floor. Was discharged on metoprolol and cardizem. he was not on any meds prior to this. His BP is quite elevated today. He states that he has severe case of white coat HTN. He feels very anxious coming to see doctors. He checked his BP at pharmacy last week and it was normalHe is a construction management instructor. He is trying to decrease alcohol intake. Denies smoking cigarettes but admits to Marijuana Results from this visit, or from the past:04/15/20 ECHO: Complete two-dimensional color flow and doppler transthoracic echocardiogram is performed. Left ventricular chamber dimension is normal. LVEF is normal, estimated at 55-60%. Mild sclerosis of the mitral valve. There is trace mitral valve regurgitation. There is mild aortic valve sclerosis. Grade II diastolic dysfunction of the LV (pseudonormal filling pattern). Maximilian Howard MD [address] [place], [address], [facility] 04/25/2022 11:36:30 10/24/2022 text/html 10/24/22CC : Car diac follow up, dyspnea on [id number] year-old man with h/o Hypertension, SVT, Anxiety, and Alcohol abuse is here for 6 month follow up with ECHO results. He was last seen in the clinic on 04/25/22, since then he is now retired,He denies ER visits and hospitalizations since he was last seen. Today reports:Denies chest pain.Denies shortness of breath at rest. Has mild dyspnea on exertion.No orthopnea. No PNDs.Denies heart palpitations.Denies dizziness. Denies syncope or near syncope.No ankle or leg edema.No major bleeding events.No reported side effects from medications. Taking medications as prescribed with no missed doses.Denies snoring, daytime somnolence and AM headache.*Last LDL was 87 done on 04/14/20.Pt dose not takes any statins. *Had ECHO on 05/22/22 showed LV chamber size is normal,LV wall thickness is mildly increased,there is normal global systolic function and contractility,LVEF is 55-60%,LV realization is impaired,there is mild aortic regurgitation. Previously:*Had negative stress test done on 09/27/21 with Normal LV systolic function. Exercise tolerance: Poor. He Was admitted to [facility] with SVT HR 160. He received initially adenosine in ER then went back in SVT while on the floor. Was discharged on metoprolol and cardizem. he was not on any meds prior to this. His BP is quite elevated today. He states that he has severe case of white coat HTN. He feels very anxious coming to see doctors. 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 Denies smoking cigarettes but admits to Marijuana Results from this visit, or from the past:04/15/20 ECHO: Complete two-dimensional color flow and doppler transthoracic echocardiogram is performed. Left ventricular chamber dimension is normal. LVEF is normal, estimated at 55-60%. Mild sclerosis of the mitral valve. There is trace mitral valve regurgitation. There is mild aortic valve sclerosis. Grade II diastolic dysfunction of the LV (pseudonormal filling pattern). Maximilian Howard MD [address] [place], [address], [facility] 10/24/2022 11:50:27 04/24/2023 text/html 04/24/23CC : [facility] follow up [id number] year-old man with h/o Hypertension, SVT, Anxiety, and Alcohol abuse is here for 6 month follow up. He was last seen in the clinic on 10/24/22, since then he has tooth ache and having tooth work. His BP is elevated today as he did not take his medication this morning. *Last LDL was 87 done on 04/14/20.Pt dose not takes any statins. He went to the hospital 2 weeks ago with dizziness and turn to have low potassium at the time. Today reports:Denies chest pain.Denies shortness of breath at rest. Has mild dyspnea on exertion.No orthopnea. No PNDs.Denies heart palpitations.Denies dizziness. Denies syncope or near syncope.No ankle or leg edema.No major bleeding events.No reported side effects from medications. Taking medications as prescribed with no missed doses.Denies snoring, daytime somnolence and AM headache.*Last LDL was 87 done on 04/14/20.Pt dose not takes any statins. Previously: *Had ECHO on 05/22/22 showed LV chamber size is normal,LV wall thickness is mildly increased,there is normal global systolic function and contractility,LVEF is 55-60%,LV realization is impaired,there is mild aortic regurgitation. *Had negative stress test done on 09/27/21 with Normal LV systolic function. Exercise tolerance: Poor. He Was admitted to [facility] with SVT HR 160. He received initially adenosine in ER then went back in SVT while on the floor. Was discharged on metoprolol and cardizem. he was not on any meds prior to this. His BP is quite elevated today. He states that he has severe case of white coat HTN. He feels very anxious coming to see doctors. 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 Denies smoking cigarettes but admits to Marijuana Results from this visit, or from the past:04/15/20 ECHO: Complete two-dimensional color flow and doppler transthoracic echocardiogram is performed. Left ventricular chamber dimension is normal. LVEF is normal, estimated at 55-60%. Mild sclerosis of the mitral valve. There is trace mitral valve regurgitation. There is mild aortic valve sclerosis. Grade II diastolic dysfunction of the LV (pseudonormal filling pattern). SAHIL donohue [place] - [facility] 04/24/2023 12:23:09
[2024-09-09] MEDS: LACTATED RINGERS 1,000 ML 30 ML IV CONT ×3 (06:30→14:57)
--- NOTE | 2024-09-09 07:08 | WPDHPUPDATE1 ---
History and Physical Update Update Date/Time: 09/09/24 07:08 History and Physical has been reviewed, including an updated exam of the patient. There are NO changes in the patient's condition. Risks, benefits, and alternatives have been discussed and questions answered. Patient agrees to proceed with procedure. Proceed with robotic assist nerve sparing prostatectomy with possible plnd
[2024-09-09 07:09] LABS: Sodium 133 mmol/L (137-145)
[2024-09-09] MEDS: ceFAZolin 2 GM/D5W 50 ML 2 GM/50 ML BAG IVPB (07:33)
--- NOTE | 2024-09-09 08:34 | SUR.OPER ---
Culture sent with Mukul Gary RN and received in pathology by Cristian
[2024-09-09] MEDS: BUPivacaine HCL 0.5% 10 ML AMP 30 ML INFILTRATE (08:36)
--- NOTE | 2024-09-09 13:12 | P.OP_ITS ---
Procedure Note - Detailed Date of Procedure 09/09/24 Pre-op Diagnosis prostate CA Post-op Diagnosis Same (Extensive adhesions) Procedure Performed Next extensive abdominal adhesiolysis, robotic assisted nerve-sparing prostatectomy with right pelvic lymph node dissection Surgeon Michael Dias MD Anesthesia General Description of Procedure Patient was taken to the operative suite correctly identified. Once anesthesia was obtained he was placed in low-lying dorsal lithotomy position prepped and draped usual sterile fashion. Eighteen Urugu[place] Marcelo was placed with 10 cc in the balloon. Supraumbilical incision was made and carried down to the rectus fascia. It was noted that he had a little cystic structure where his prior hernia had been. This was excised and sent for analysis. We then placed a Veress needle insufflated the abdomen to 15 mmHg pressure. Camera trocar was placed under direct vision. It was noted that he had extensive amount of omental adhesions up to the abdominal wall. I was able to place the other remaining port sites in. We could not proceed until those omental adhesions were taken down to. Using a LigaSure I took a down. This added 30 minutes to the case. We then placed the patient in a Trendelenburg position and docked the robot. Posterior approach was then taken. Seminal vesicles were dissected out in their entirety. The vas were transected. Plane between the prostate and rectum was developed. Bladder was taken down. It did not have the normal dis crete obliterated the ligaments. We were able to finally take the bladder down. Space of Retzius to was developed bilaterally. Puboprostatic swear incised. Dorsal venous complex was isolated using an 0 Vicryl in secured to pubic bone. Bladder neck was then opened to expose the Marcelo catheter. Bladder neck sparing procedure was performed. The posterior 10 of EAS was incised to expose the kellee inal vesicles. Bilateral nerve-sparing was then performed. Pedicles were taken using clips. Dorsal venous complex and urethra were transected. Specimen was placed in an Endo-Catch bag. Right pelvic lymph node dissection was then performed with the borders being the external iliac vein, obturator nerve, Ken's ligament, and bifurcation of the vessels. Clips were placed proximally distally. A Osmar stitch was then performed using 0 Vicryl. The bladder neck was then anastomosed to the urethral stump using V lock in a running fashion. There was good approximation. Sixteen Uruguayan Marcelo was placed inflated with 10 cc. The bladder was irrigated without any evidence of extravasation. Surgicel was placed over the nerves as well as the obturator fossa. I also placed some Surgicel on the left adjacent to the urethral stump were little vein was bleeding. ANGELA drain was placed through the 4th port site. This was secured. The robot was undocked. Specimen was brought out through the midline incision. Rectus fascia was closed using 0 Vicryl in a running fashion. Subcuticular stitches were placed. Incisions were anesthetized using 0.25% Marcaine. Patient tolerated procedure well without any complications was taken recovery stable condition. All lap count needle count sponge counts were correct. This completes dictation. Please send a copy of op note to my office Estimated Blood Loss 100 Drains Yes Packing No Pathology Yes Complications No immediate complications Condition Stable
[2024-09-09] MEDS: LACTATED RINGERS 1,000 ML 125 ML IV CONT (16:36)
--- OUTSIDE RECORDS SUMMARY | 2024-09-09 16:38 | XMS_ITS | Clinical Summary ---
Author Organization [facility] Address On license of [facility] [place] [address] Care Team Providers Care Chute Loader Name Role Phone Jacque Calvin MD Primary Care Provider + Allergies No known active allergies Medications metoprolol succinate ER (TOPROL-XL) 25 MG 24 hr tabletIndications :Essential hypertension,Supr aventricular tachycardia ([facility]) Take 1 tablet (25 mg total) by [...] Problem Noted Date Diagnosed Date Prostate cancer ([facility]) 06/11/2024 Essential hypertension 02/19/2024 Overview (02/19/2024): Takes [...] cannabis to manage anxiety. Supraventricular tachycardia (CMS/HCC [facility]/HCC) 0 02/19/2024 Overview (02/19/2024): Dr. Howard. Had a stress test. Has not seen cardiology and does not plan to follow-up there any longer. Well-controlled with metoprolol and diltiazem. Assessment & Plan (02/19/2024 12:13 PM CDT): Controlled. Will continue diltiazem and metoprolol and [place] back with cardiology if needed. 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 Pulse 66 02/19/2024 11:19 AM CDT Temperature [...] Vaccines (1 of 2) 2010 COVID-19 Vaccine ( - 2023-2 5 season) 2024 Influenza Adult (#1) 2024 PHQ-2 (Physician Gambell) 08/06/2024 02/19/2024 Annual Physical 02/18/2025 02/19/2024 PHQ-2 (Physician Gambell) 02/18/2025 02/19/2024 Colorectal Cancer Screening FIT-DNA (3 Years) 03/05/2027 03/05/2024 DTaP, Tdap and Td Vaccines ( 2 - Td or Tdap) 02/18/2034 02/19/2024 RSV Immunization or 60+ Years (1 - 1-dose 75+ series) 2035 Meningococcal B Vaccine Aged Out No l onger eligible based on patient's age to complete this topic Meningococcal Vaccine Aged Out No samantha maricarmen eligible based on patient's age to complete [...] 6:20 AM CDT) COLOGUARD RESULT Negative Negative [employer] (CLIA #:[id number]) Comment: NEGATIVE TEST RESULT. A negative Cologuard [...] cancer. ??Following a negative Cologuard result, the [place] [employer] and U.S. Multi-Society Task Force screening guidelines recommend a Cologuard re-screening interval of 3 years. References: [place] [employer] Guideline for Colorectal Cancer Screening: https://www.cancer.org/cancer/qkglh-qklaen-posibh/bconwdsaw-zlgqeeocf-qzdkmch/ac s-rec ommendations.html.; Domingo GIBSON, Khadra CR, Nancy BookerK, Colorectal Cancer Screening: Recommendations for Physicians and Patients from the U.S. Multi-Society Task Force on Colorectal Cancer Screening , Am J Gastroenterology 2017; 112:3121-3600. TEST DESCRIPTION: Composite algorithmic analysis of stool [...] (Marivel Araujo al, N Engl J Med 2014;370(14):9586-2740.) Cologuard may produce a false negative or false positive result (no colorectal cancer or precancerous polyp present at colonoscopy follow up). A negative Cologuard test result does not guarantee the absence of CRC or advanced adenoma (pre-cancer). The current Cologuard screening interval is every 3 years. ([place] [employer] and U.S. Multi-Society Task Force). Cologuard performance data in a 10,000 patient pivotal study using colonoscopy as the reference method can be accessed at the following location: www.[employer]/results. Additional description of the Cologuard test process, warnings and precautions can be found at www.VtagOrd.com. STOOL STOOL SPECIMEN / Unknown 03/05/2024 6:20 AM CDT 03/06/2024 9:46 AM CDT us Jacque Calvin MD BODY FLUIDS AND STOOLS O RDERABLES Final Result [facility] ([facility]) [address] [place] [address], [facility] (CLIA #:[id number]) [address] [place] [address] from Last 3 Months or Most Recently Relevant to Health Maintenance Insurance [facility] Advance Directives Documents on File Type Date Recorded Patient Electronic Tester Expl anation Power of Litigation Services Manager 02/28/2024 8:23 AM Care Teams Chute Loader Relationship Specialty Start Date End Date Jacque Calvin MD [address] [place] [address] PCP - General FAMILY PRACTICE 02/19/24
[2024-09-09] MEDS: MORPHINE SULFATE (*CRX) 2 MG/ML INJ 1 MG IV PUSH ×2 (16:39→18:47)
--- NOTE | 2024-09-09 17:56 | PC.NURSE ---
SPOKE W/ DR. YOUNGER TO MAKE AWARE OF HEMATURIA AND GENTLE NS IRRIGATION PERFORMED BY DOCUMENTING RN; 50ML INSTILLED AND 200ML ASPIRATED BLOODY URINE W/ MIN SMALL CLOTS. PT THEN BLADDER SCANNED PT X3 W/ 0-4ML READING. ALL THIS RELAYED TO DR. PRYOR. ORDERS RCV'D FOR CONTINUENCE OR IRRIGATION UPON ADMIT TO FLOOR.
--- NOTE | 2024-09-09 18:33 | ADMGEN ---
This patient, Richie Blackburn, was admitted to 3 [facility] Surg Room 302-01. Patient/family oriented to hospital policies and general routines including ID bracelet, bed and alarms, visiting hours, pain management, procedures, bathroom and other care routines, personal items, smoking policy, room service/diet, and visiting hours. Information on how to activate the Rapid Response Team has been discussed. Patient/Family are encouraged to report perceived risks to care and to ask questions if they do not understand what they are told or what they should do.
--- NOTE | 2024-09-09 18:52 | PC.NURSE ---
184:REPORT TO DAYAMI CLEMENTS RN 3M/S. PT TRANSFERRED TO 302-1
[2024-09-09] MEDS: HYDROcodone/acetaminophen (*CRX) 5-325 MG TABLET 1 TAB PO (23:04)
[2024-09-09] MEDS: hydroCHLOROthiazide 25 MG TABLET PO (23:04)
[2024-09-10] MEDS: MORPHINE SULFATE (*CRX) 2 MG/ML INJ 1 MG IV PUSH ×3 (00:33→10:55)
[2024-09-10] MEDS: LACTATED RINGERS 1,000 ML 125 ML IV CONT ×4 (00:33→23:26)
[2024-09-10 04:00] VITALS: BP 133/77; PULSE 77; RESP 18; TEMP 36.6; O2SAT 96
[2024-09-10 06:00] VITALS: BP 134/68; PULSE 77; TEMP 36.6; O2SAT 99
--- NOTE | 2024-09-10 06:31 | PC.NURSE ---
Urinary catheter irrigated every 1- 1 1/2 hours through the night. Initially irrigation solution came back bloody with clots. Through the night, irrigation solution cleared up progressing to dark pink with small clots, to light pink, to clear with pink tinge and now currently clear yellow. Urine in schmid bag now yellow in color.
[2024-09-10 07:15] LABS: Hematocrit 35.6 % (42.0-52.0); Hemoglobin 12.2 g/dL (14.0-18.0)
[2024-09-10 07:27] LABS: Anion Gap 5 mmol/L (4-12); Blood Urea Nitrogen 8 mg/dL (9-20); Calcium 8.7 mg/dL (8.4-10.2); Carbon Dioxide 30 mmol/L (22-30); Chloride 94 mmol/L (98-107); Estimated CRCL calculation 118 ml/min; Estimated Glomerular Filt Rate > 60; Glucose 111 mg/dL (65-110); Potassium 4.3 mmol/L (3.4-5.0); Sodium 129 mmol/L (137-145)
[2024-09-10] MEDS: KETOROLAC 30 MG/ML VIAL (*BKC) IV PUSH ×2 (07:27→15:29)
[2024-09-10] MEDS: levoFLOXacin 500 MG TABLET PO (08:51)
[2024-09-10 11:47] VITALS: BP 131/66; PULSE 78; RESP 18; TEMP 36.3; O2SAT 98
[2024-09-10] MEDS: HYDROcodone/acetaminophen (*CRX) 5-325 MG TABLET 2 TAB PO ×2 (12:19→18:12)
[2024-09-10] MEDS: HYOSCYAMINE SULFATE 0.125 MG TABLET SUBLINGUAL ×2 (12:19→18:12)
--- NOTE | 2024-09-10 13:00 | WPDUROPN2 ---
Progress Note: A&P Assessment and Plan (1) Adenocarcinoma of prostate: Code(s): C61 - Malignant neoplasm of prostate Status: Acute Assessment and Plan: 1 still not quite to the point to ready for discharge. She urine output adequate. Will see how he does overnight regarding ANGELA output. Most likely discharge home tomorrow Subjective Subjective Date/Time Seen: 09/10/24 13:00 Post Op day: 1 (This cyst nerve-sparing prostatectomy with right pelvic lymph node dissection and extensive adhesiolysis) Principal diagnosis: Adenocarcinoma of the prostate Interval history: Doing well overall. Hemodynamically stable. Hemoglobin 12, creatinine normal. Urine clear at this time. He did require quite a bit of irrigation overnight. Does not quite feel up to going home this point Review of Systems Review of Systems: All systems reviewed & are unremarkable except as noted in HPI and below Exam Const: General: cooperative and uncomfortable Resp: Effort & Inspection: normal respiratory effort Cardio: Rate: regular rate Rhythm: regular rhythm GI: GI Palp: Yes Soft to palpation Urinary Catheter: Urinary Catheter: patent and draining and urine clear Objective Data Vital Signs Vital Signs: Vital Signs - 24 hr 09/09/24 13:33 09/09/24 13:50 09/09/24 14:05 Temperature 36.4 C 36.4 C Pulse Rate 72 64 62 Respiratory Rate 16 14 16 Blood Pressure 116/55 L 133/68 135/63 Pulse Oximetry 100 100 100 Oxygen Delivery Simple Face Mask Simple Face Mask Room Air Oxygen Flow Rate 8 8 09/09/24 14:20 09/09/24 14:35 09/09/24 14:54 Temperature Pulse Rate 70 77 71 Respiratory Rate 16 16 16 Blood Pressure 138/74 117/64 124/67 Pulse Oximetry 100 100 100 Oxygen Delivery Room Air Room Air Room Air Oxygen Flow Rate 09/09/24 15:10 09/09/24 15:40 09/09/24 18:55 Temperature 36.4 C L Pulse Rate 68 80 88 Respiratory Rate 16 16 18 Blood Pressure 129/66 121/64 127/45 L Pulse Oximetry 100 96 96 Oxygen Delivery Room Air Room Air Oxygen Flow Rate 09/09/24 20:00 09/09/24 21:05 09/09/24 23:48 Temperature 36.4 C 36.4 C Pulse Rate 85 75 Respiratory Rate 16 16 Blood Pressure 131/77 132/65 Pulse Oximetry 97 95 Oxygen Delivery Room Air Oxygen Flow Rate 09/10/24 04:00 09/10/24 06:00 09/10/24 08:00 Temperature 36.6 C 36.6 C Pulse Rate 77 77 Respiratory Rate 18 Blood Pressure 133/77 134/68 Pulse Oximetry 96 99 Oxygen Delivery Room Air Oxygen Flow Rate 09/10/24 11:47 Temperature 36.3 C L Pulse Rate 78 Respiratory Rate 18 Blood Pressure 131/66 Pulse Oximetry 98 Oxygen Delivery Oxygen Flow Rate Intake/Output Intake/Output: Intake & Output 09/07/24 09/08/24 09/09/24 09/10/24 23:59 23:59 23:59 23:59 Intake Total 1350 2642.6 Output Total 1405 820 Balance -55 1822.6 Meds/Results Medications: Active Medications Generic Name Dose Route Start Last Admin Trade Name Freq PRN Reason Stop Dose Admin Hydrocodone Bitart/Acetaminophen 1 tab 09/09/24 15:55 09/09/24 23:04 Hydrocodone/Acetaminophen (*Crx) 5-325 Mg Tablet PO 1 tab Q6H PRN Administration Pain Rated 1-3 Hydrocodone Bitart/Acetaminophen 2 tab 09/09/24 15:55 09/10/24 12:19 Hydrocodone/Acetaminophen (*Crx) 5-325 Mg Tablet PO 2 tab Q6H PRN Administration Pain Rated 4-6 Hydrochlorothiazide 25 mg 09/09/24 21:00 09/09/24 23:04 Hydrochlorothiazide 25 Mg Tablet PO 25 mg HS KAYDEN Administration Hyoscyamine 0.125 mg 09/09/24 15:55 09/10/24 12:19 Hyoscyamine Sulfate 0.125 Mg Tablet SUBLINGUAL 0.125 mg Q4H PRN Administration Bladder Spasm Lactated Ringer's 1,000 mls @ 125 mls/hr 09/09/24 15:55 09/10/24 07:30 Lr - Lactated Ringers Iv IV CONT 125 mls/hr .Q8H KAYDEN Administration Ketorolac Tromethamine 30 mg 09/09/24 15:55 09/10/24 07:27 Ketorolac 30 Mg/Ml Vial (*Bkc) IV PUSH 09/10/24 15:54 30 mg Q6H PRN Administration Pain Rated 4-6 Levofloxacin 500 mg 09/10/24 09:00 09/10/24 08:51 Levofloxacin 500 Mg Tablet PO 500 mg DAILY KAYDEN Administration Morphine Sulfate 1 mg 09/09/24 15:55 09/10/24 10:55 Morphine Sulfate (*Crx) 2 Mg/Ml Inj IV PUSH 1 mg Q2H PRN Administration Pain Rated 7-10 Naloxone HCl 0.1 mg 09/09/24 15:55 Naloxone Hcl 0.4 Mg/Ml Vial IV PUSH Q2M PRN Opiate Reversal Labs Labs: Laboratory Results - last 24 hr 09/10/24 06:48 Hgb 12.2 L Hct 35.6 L Sodium 129 L Potassium 4.3 Chloride 94 L Carbon Dioxide 30 Anion Gap 5 BUN 8 L Creatinine 0.64 L Estim Creat Clear Calc 118 Estimated GFR > 60 Glucose 111 H Calcium 8.7
[2024-09-10 13:51] VITALS: BP 136/64; PULSE 76; RESP 16; TEMP 36.6; O2SAT 100
--- NOTE | 2024-09-10 14:13 | WPDANESPN ---
Anes - Prog Note Post-Op Date/Time: 09/10/24 14:13 Cardiovascular status: normal Respiratory status: normal Airway patency: baseline Mental status: baseline Post-Op hydration status: normal Vital Signs: Last Vital Signs Temp 97.8 F 09/10/24 13:51 Pulse 76 09/10/24 13:51 Resp 16 09/10/24 13:51 BP 136/64 09/10/24 13:51 Pulse Ox 100 09/10/24 13:51 O2 Del Method Room Air 09/10/24 08:00 O2 Flow Rate 8 09/09/24 13:50 Pain Score (VAS): 0/10 I/O: Intake & Output 09/09/24 09/10/24 09/10/24 23:59 07:59 15:59 Intake Total 2162.6 680 Output Total 940 770 50 Balance -940 1392.6 630 Laboratory Tests 09/10/24 06:48 09/10/24 06:48 09/10/24 06:48 Hgb 12.2 L Hct 35.6 L Sodium 129 L Potassium 4.3 Chloride 94 L Carbon Dioxide 30 Anion Gap 5 BUN 8 L Creatinine 0.64 L Estim Creat Clear Calc 118 Estimated GFR > 60 Glucose 111 H Calcium 8.7 Microbiology 09/09/24 08:21 Abdomen Anaerobic Culture - Preliminary Post-procedural complaints: none Patient Feedback: Patient satisfied with anesthetic care.
[2024-09-10 19:56] VITALS: BP 128/61; PULSE 81; RESP 20; TEMP 36.7; O2SAT 95
[2024-09-10] MEDS: hydroCHLOROthiazide 25 MG TABLET PO (20:47)
[2024-09-11] MEDS: HYOSCYAMINE SULFATE 0.125 MG TABLET SUBLINGUAL (01:35)
[2024-09-11] MEDS: HYDROcodone/acetaminophen (*CRX) 5-325 MG TABLET 2 TAB PO (01:39)
[2024-09-11 03:42] VITALS: BP 114/59; PULSE 77; RESP 20; TEMP 35.9; O2SAT 96
[2024-09-11] MEDS: LACTATED RINGERS 1,000 ML 125 ML IV CONT (08:47)
[2024-09-11] MEDS: levoFLOXacin 500 MG TABLET PO (08:48)
[2024-09-11] MEDS: HYDROcodone/acetaminophen (*CRX) 5-325 MG TABLET 1 TAB PO (08:48)
--- NOTE | 2024-09-11 09:06 | WPDUROPN2 ---
Progress Note: A&P Assessment and Plan (1) Adenocarcinoma of prostate: Code(s): C61 - Malignant neoplasm of prostate Status: Acute Assessment and Plan: Overall doing well. Will remove ANGELA and discharge home with schmid. FOllow up next week with catheter cystogram. Subjective Subjective Date/Time Seen: 09/11/24 09:06 Post Op day: 2 (robotic assist nerve sparing prostatectomy) Principal diagnosis: adenocarcinoma of prostate Interval history: Had gas pains. Overall doing well. Urine clearing. Passing gas and ambulating Review of Systems Review of Systems: All systems reviewed & are unremarkable except as noted in HPI and below Exam Const: General: cooperative and comfortable Resp: Effort & Inspection: normal respiratory effort Cardio: Rate: regular rate Rhythm: regular rhythm Urinary Catheter: Urinary Catheter: patent and draining and urine clear Objective Data Vital Signs Vital Signs: Vital Signs - 24 hr 09/10/24 11:47 09/10/24 13:51 09/10/24 19:56 Temperature 36.3 C L 36.6 C 36.7 C Pulse Rate 78 76 81 Respiratory Rate 18 16 20 Blood Pressure 131/66 136/64 128/61 Pulse Oximetry 98 100 95 Oxygen Delivery 09/10/24 20:00 09/11/24 03:42 09/11/24 08:48 Temperature 35.9 C L Pulse Rate 77 Respiratory Rate 20 Blood Pressure 114/59 L Pulse Oximetry 96 Oxygen Delivery Room Air Room Air Intake/Output Intake/Output: Intake & Output 09/08/24 09/09/24 09/10/24 09/11/24 23:59 23:59 23:59 23:59 Intake Total 1350 5574.3 1400 Output Total 1405 1560 918 Balance -55 4014.3 482 Meds/Results Medications: Active Medications Generic Name Dose Route Start Last Admin Trade Name Freq PRN Reason Stop Dose Admin Hydrocodone Bitart/Acetaminophen 1 tab 09/09/24 15:55 09/11/24 08:48 Hydrocodone/Acetaminophen (*Crx) 5-325 Mg Tablet PO 1 tab Q6H PRN Administration Pain Rated 1-3 Hydrocodone Bitart/Acetaminophen 2 tab 09/09/24 15:55 09/11/24 01:39 Hydrocodone/Acetaminophen (*Crx) 5-325 Mg Tablet PO 2 tab Q6H PRN Administration Pain Rated 4-6 Hydrochlorothiazide 25 mg 09/09/24 21:00 09/10/24 20:47 Hydrochlorothiazide 25 Mg Tablet PO 25 mg HS KAYDEN Administration Hyoscyamine 0.125 mg 09/09/24 15:55 09/11/24 01:35 Hyoscyamine Sulfate 0.125 Mg Tablet SUBLINGUAL 0.125 mg Q4H PRN Administration Bladder Spasm Lactated Ringer's 1,000 mls @ 125 mls/hr 09/09/24 15:55 09/11/24 08:47 Lr - Lactated Ringers Iv IV CONT 125 mls/hr .Q8H KAYDEN Administration Levofloxacin 500 mg 09/10/24 09:00 09/11/24 08:48 Levofloxacin 500 Mg Tablet PO 500 mg DAILY KAYDEN Administration Morphine Sulfate 1 mg 09/09/24 15:55 09/10/24 10:55 Morphine Sulfate (*Crx) 2 Mg/Ml Inj IV PUSH 1 mg Q2H PRN Administration Pain Rated 7-10 Naloxone HCl 0.1 mg 09/09/24 15:55 Naloxone Hcl 0.4 Mg/Ml Vial IV PUSH Q2M PRN Opiate Reversal
== END 2024-09-11 12:08 | disposition home or self-care (01) | DRG 708 ==
LOC: ANHSUROVER 16:34 → ANH3MEDSUR 18:31
PROVIDERS: Anesthesiology; Admitting Provider Urology; PCP Student in an Organized Health Care Education/Training Program; Visit Provider Urology
PROC: 0VT04ZZ Resection of Prostate, Percutaneous Endoscopic Approach (ICD-10-PCS; CPT 55867; principal; 2024-09-09 07:30)
DX: C61 Malignant neoplasm of prostate (principal); K66.0 Peritoneal adhesions (postprocedural) (postinfection)
CPT/HCPCS: 36415; 80048; 84295; 85014; 85018; 86850; 86900; 86901; 87070; 87075; 87205; 88304; 88305; 88309; A9270; J0690; J1100; J1171; J1596; J1885; J2003; J2250; J2270; J2405; J2704; J3010; J7030; J7120; Q9968

== ENCOUNTER 2024-09-17 12:03 | Outpatient (CLI) | payer OTHER, SELFPAY ==
--- NOTE | ~2024-09-17 | XR_ITS ---
EXAMINATION: CYSTOGRAM DATE: 09/17/2024 12:50 INDICATION: Status post prostatectomy for prostate cancer TECHNIQUE: Initial message broker developer radiograph of the pelvis was performed. There was retrograde administration of Omnipaque 350 mixed with saline contrast into patient's existing Marcelo catheter. Fluoroscopic devi ges of the pelvis were obtained. A post-void image was also performed. A total of 2 overhead radiogra phs and 9 fluoroscopic images were obtained. Fluoroscopy exposure time was 0.5 minutes. Total DAP was 70.946 Gycm^2 FINDINGS: Normal bowel gas pattern on the message broker developer image. Normal contour and spiculated mucosa to the bladder. No evident bladder leak. IMPRESSION: 1. No bladder leak. Reviewed, dictated and finalized at location A. [facility] IMPRESSION: 1. No bladder leak.
--- OUTSIDE RECORDS SUMMARY | 2024-09-17 12:25 | XMS_ITS | Clinical Summary ---
Author Organization [facility] Address [facility] [place] [address] Care Team Providers Care Soda Clerk Name Role Phone Jacque Calvin MD Primary Care Provider + Allergies No known active allergies Medications metoprolol succinate ER (TOPROL-XL) 25 MG 24 hr tabletIndications :Essential hypertension,Supr aventricular tachycardia ([facility]) Take 1 tablet (25 mg [...] Problem Noted Date Diagnosed Date Prostate cancer ([facility]) 06/11/2024 Essential hypertension 02/19/2024 Overview [...] uses cannabis to manage anxiety. Supraventricular tachycardia ([facility]) 0 02/19/2024 Overview (02/19/2024): Dr. Howard. Had a stress test. Has not seen cardiology and does not plan to follow-up there any longer. Well-controlled with metoprolol and diltiazem. Assessment & Plan (02/19/2024 12:13 PM CDT): Controlled. Will continue diltiazem and metoprolol and buckland back with cardiology if needed. 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 Pulse 66 02/19/2024 11:19 AM CDT Temperature 37.2 C (99 F) 02/19/2024 11:19 AM CDT Respiratory Rate 24 [...] 2024 Influenza Adult (#1) 2024 PHQ-2 (Physician [place]) 08/06/2024 02/19/2024 Annual Physical 02/18/2025 02/19/2024 PHQ-2 (Physician [place]) 02/18/2025 02/19/2024 Colorectal Cancer Screening FIT-DNA (3 Years) 03/05/2027 03/05/2024 DTaP, Tdap and Td Vaccines ( 2 - Td or Tdap) 02/18/2034 02/19/2024 RSV Immunization or 60+ Years (1 - 1-dose 75+ series) 2035 Meningococcal B Vaccine Aged Out No l onger eligible based on patient's age to complete this topic Meningococcal Vaccine Aged Out No samantha shanika eligible based on patient's age to complete this topic RSV Immunizations Under 20 Months Aged Out No longer eligible based on patient's age to complete this topic Procedures Procedure Name Priority Date/Time Associated Diagnosis Comments PROCEDURE GENERIC (SCAN ORDER) 09/09/2024 PROCEDURE GENERIC (SCAN ORDER) 06/20/2024 COLOGUARD (EXACT SCIENCE) Routine 03/05/2024 6:20 AM CDT Colon cancer screening from Last 3 Months or Most Recently Relevant to Health Maintenance Results * PROCEDURE GENERIC (SCAN ORDER) (09/09/2024) 09/09/2024 [facility] Scanned SCANNING Final Resu lt * PROCEDURE GENERIC (SCAN ORDER) (06/20/2024) 06/20/2024 [facility] Scanned SCANNING Final Resu lt * COLOGUARD (EXACT SCIENCE) (03/05/2024 6:20 AM CDT) COLOGUARD RESULT Negative Negative [employer] (CLIA #:[id number]) Comment: NEGATIVE TEST RESULT. A negative Cologuard result indicates a low likelihood that a colorectal cancer (CRC) or advanced adenoma (adenomatous polyps with more advanced pre-malignant features) is present. The chance that a person with a negative Cologuard test has a colorectal cancer is less than 1 in 1500 (negative predictive value >99.9%) or has an advanced adenoma is less than 5.3% (negative predictive value 94.7%). These data are based on a prospective cross-sectional study of 10,000 individuals at average risk for colorectal cancer who were screened with both Cologuard and colonoscopy. (Marivel Araujo al, N Engl J Med 2014;370(14):1761-1868) The normal value (reference range) for this assay is negative. COLOGUARD RE-SCREENING RECOMMENDATION: Periodic colorectal cancer screening is an important part of preventive healthcare for asymptomatic individuals at average risk for colorectal cancer. Following a negative Cologuard result, the [place] Cancer Society and U.S. Multi-Society Task Force screening guidelines recommend a Cologuard re-screening interval of 3 years. References: [place] [employer] Society Guideline for Colorectal Cancer Screening: https://www.cancer.org/cancer/fnypg-mlbsde-nvqebw/strihejva-bpuepgtfd-ckqjcij/ac s-rec ommendations.html.; Domingo DK, Khadra CR, Nancy BookerK, Colorectal Cancer Screening: Recommendations for Physicians and Patients from the U.S. Multi-Society Task Force on Colorectal Cancer Screening , Am J Gastroenterology 2017; 112:4560-7916. TEST DESCRIPTION: Composite algorithmic analysis of stool DNA-biomarkers with hemoglobin immunoassay. Quantitative values of individual biomarkers are not [...] (Marivel Araujo al, N Engl J Med 2014;370(14):5822-6746.) Cologuard may produce a false negative or false positive result (no colorectal cancer or precancerous polyp present at colonoscopy follow up). A negative Cologuard test result does not guarantee the absence of CRC or advanced adenoma (pre-cancer). The current Cologuard screening interval is every 3 years. ([place] Cancer Society and U.S. Multi-Society Task Force). Cologuard performance data in a 10,000 patient pivotal study using colonoscopy as the reference method can be accessed at the following location: www.exactExamify.com/results. Additional description of the Cologuard test process, warnings and precautions can be found at www.cologSamba TVrd.com. STOOL STOOL SPECIMEN / Unknown 03/05/2024 6:20 AM CDT 03/06/2024 9:46 AM CDT us Jacque Calvin MD BODY FLUIDS AND STOOLS O RDERABLES Final Result [employer] ([facility]) [address] [place] [address], [employer] (CLIA #:[id number]) [address] 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
--- OUTSIDE RECORDS SUMMARY | 2024-09-17 12:25 | XMS_ITS | Encounter Summary ---
Author Organization [facility] Address [address] [place] [address] Care Team Providers Care Heating Unit Installer Name Role Phone Jacque Calvin MD Primary Care Provider + Reason for Visit * Reason Comments Procedure (SCAN) Encounter Details Date Type Department Care Team ([facility] Contact Info) Description 09/09/2024 Scan HEALTH INFO SRVCS Scanned, Doc Med Group Procedure (SCAN) Social History Tobacco Use Types Packs/Day Years Used Date Smoking Tobacco: Some Days Cigars Smokeless Tobacco: Never Alcohol Use Standard Drinks/Week Comments Yes 50 (1 standard drink = 0.6 oz pu re alcohol) about 4 beers daily PHQ-2 Answer Date Recorded Patient Health Questionnaire-2 Score 3 02/19/2024 Sex and Gender Information Value Date Recorded Sex Assigned at Not on file Legal Sex Male 1:10 PM CDT Gender Identity Not on file Sexual Orientation Not on file documented as of this encounter Plan of Treatment Not on file documented as of this encounter Procedures Procedure Name Priority Date/Time Associated Diagnosis Comments PROCEDURE GENERIC (SCAN ORDER) 09/09/2024 documented in this encounter Results * PROCEDURE GENERIC (SCAN ORDER) (09/09/2024) 09/09/2024 us Doc [facility] Scanned SCANNING Final Resu lt documented in this encounter Visit Diagnoses Not on filedocumented in this encounter Additional Health Concerns Assessment Noted Time PHQ-9 Depression Total Score: 7 02/19/20 24 11:58 AM CDT documented as of this encounter Care Teams Heating Unit Installer Relationship Specialty Start Date End Date Jacque Calvin MD [address] [place] [address] PCP - General FAMILY PRACTICE 02/19/24 documented as of this encounter
--- OUTSIDE RECORDS SUMMARY | 2024-09-17 12:25 | XMS_ITS | Data Portability ---
Author Organization [place] - [facility] OFFICE Address [address] [place] [address] Care Team Providers Care Physical Therapy Manager Name Role Phone SENIA COMER Primary Care Provider Assessment Encounter Date Assessment Date Assessment LastModified [...] tended release 24 hr [address] [id number] [address] [place], [place], [id number], 0 16:57:05 hydrochlor othiazide 25 mg tablet [address] [facility]75825 [address] [place], [place], [id number], 0 16:57:05 diltiazem CD 120 mg capsule,ex tended release 24 hr 2020 021 [facility], [address], [place], [address], 1 16:53:49 hydrochlor othiazide 25 mg tablet 2020 021 [facility], [address], [address], [place], [address], 16:53:53 metoprolol succinate ER 25 mg tablet,ext ended release 24 hr 2020 021 [facility], [address], [address], [place], [address], 13:20:11 diltiazem CD 120 mg capsule,ex tended release 24 hr 2021 022 [facility], [address], [address], [place], [address], 2 11:35:08 metoprolol tartrate 25 mg tablet 2021 022 [facility], [address], [address], [place], [address], 2 09:44:45 hydrochlor othiazide 25 mg tablet 2021 022 [facility], [address], [address], [place], [address], 2 11:35:10 diltiazem CD 120 mg capsule,ex tended release 24 hr 2022 023 [facility], [address] [place] [address], [address], 3 10:39:34 hydrochlor othiazide 25 mg tablet 2022 023 [facility], [address] [place] [address], [address], 3 10:39:34 diltiazem CD 180 mg capsule,ex tended release 24 hr 2022 023 [facility] #24481, [address] [place], [place], [id number], 3 12:23:10 hydrochlor othiazide 25 mg tablet 2022 023 [facility], [facility] [place], [address], 3 12:23:08 Patient TargetsNo targets recorded. Patient Instructions Encounter Date Encounter Id Patient Instructions Last Modified By Organization Details Last Modified Time 04/25/2022 [id number] Exercise advised Low cholesterol diet advised Low sodium diet advised. [email or web address] Not available 04/25/2022 11:36:00 10/24/2022 [id number] Weight loss 20 pounds Exercise advised Low cholesterol diet advised Low sodium diet advised. [email or web address] Not available 10/24/2022 11:49:12 04/24/2023 [id number] Low cholesterol diet advised Low sodium diet [...] record ed. [email or web address] Not Available 2021 10:53:46 04/27/2027 0404/25/2022 elect rocar diogr am No observ ation record ed. [email or web address] Not Available 2021 14:38:55 05/23/2005/22/2022 US, echoc ardio gram No observ ation record ed. [facility] [address], [place], [address], 05/24/2022 17:31:07 10/26/19 23 10/24/2022 elect rocar diogr am No observ ation record ed. [email or web address] Not Available 2022 15:33:48 04/30/20 23 04/24/2023 elect rocar diogr am No observ ation record ed. [email or web address] Not Available 2022 09:40:06 Result Notes None recorded. Problems Name Problem SNOMED Code Status Onset Date Resolution Date Notes Provider Name and Address Organization Details Recorded Time Alcohol abuse 10152491 Active Nataly Tranquillity null, [place] - [facility] 0 12:52:18 Cannabis abuse 52817022 Active Nataly Chaim null, [place] - [facility] 0 12:52:45 Anxiety 74037460 Active f41.9 Nataly Chaim null, [place] - [facility] 0 12:52:59 Essential hypertension 38475434 Active 2019 I10 Sanam Armstrong null, [place] - [facility] 3 15:35:01 Supraventricula r tachycardia 1371885 Active I47.1 Nataly Chaim null, [place] - [facility] 0 12:53:35 Chest pain 21428550 Active R07.9 Nataly Tranquillity null, [place] - [facility] 0 12:53:49 Problem Notes None recorded. Procedures Surgical History Date Name Laterality Status Provider Name and Address Organization Details Recorded Time hemorrhoidectomy completed Natalyfrancie Camarillos [place] - [facility] 05/14/2020 12:58:58 Imaging Results Imaging Date Name Status LastModified by Organization Details LastModified Time 04/15/2020 US, echocardiogram completed [facility] Inform ation not available 05/15/2020 13:41:47 [...] available 04/27/2022 14:38:55 05/22/2022 US, echocardiogram completed [facility] [address], [place], [address], 05/24/2022 17:31:07 10/24/2022 electrocardiogram completed Informa tion [...] Address Organization Details Last Updated DateTime 0 12578.5 8 g 81 /min 18 /min 98 % 98 % 96.9 [degF] 31.3 kg/m2 175.26 cm 180 mm[Hg] 90 mm[Hg] Shyann Roy [facility] 0 16:33:57 Date Recorded Body weight Heart rate Oxygen saturation Oxygen saturation in Arterial blood by Pulse oximetry Systolic blood pressure Diastolic blood pressure Provider Name and Address Organization Details Last Updated DateTime 1 05842.0 3 g 82 /min 100 % 100 % 170 mm[Hg] 80 mm[Hg] KHURRAM CHRISTENSEN [facility] 1 16:33:14 Date Recorded Body height Body mass index (BMI) Body weight Heart rate Respiratory rate Oxygen saturation Oxygen saturation in Arterial blood by Pulse oximetry Systolic blood pressure Diastolic blood pressure Provider Name and Address Organization Details Last Updated DateTime 2 175.26 cm 31.9 kg/m2 58305.9 5 g 81 /min 16 /min 97 % 97 % 132 mm[Hg] 82 mm[Hg] Rai Li [facility] 2 11:18:06 Date Recorded Body height Body mass index (BMI) Body weight Heart rate Respiratory rate Oxygen saturation Oxygen saturation in Arterial blood by Pulse oximetry Systolic blood pressure Diastolic blood pressure Provider Name and Address Organization Details Last Updated DateTime 3 175.26 cm 33.5 kg/m2 352452. 47 g 72 /min 16 /min 98 % 98 % 124 mm[Hg] 84 mm[Hg] Rai Guillermo [facility] 3 11:23:20 Date Recorded Body height Body mass index (BMI) Body weight Heart rate Respiratory rate Oxygen saturation Oxygen saturation in Arterial blood by Pulse oximetry Systolic blood pressure Diastolic blood pressure Provider Name and Address Organization Details Last Updated DateTime 3 175.26 cm 33.8 kg/m2 115065. 65 g 73 /min 16 /min 96 % 96 % 168 mm[Hg] 92 mm[Hg] Rai Guillermo [facility] 3 11:48:21 Social History Question Answer Notes LastModified by [facility] Details LastModified Time Tobacco Smoking Status Current Every Day Smoker Not Available [facility] 06/08/2020 03:30:18 What Is Your Level Of Alcohol Consumption? Moderate [id number] Information not available 06/08/2020 What Is Your Level Of Caffeine Consumption? Occasional [id number] Information not available 06/08/2020 What Type Of Diet Are You Following? REGULAR [id number] Information not available 06/08/2020 Which Illicit Or Recreational Drugs Have You Used? MARIJUANA [id number] Information not available 06/08/2020 Do You Or Have You Ever Used E-cigarettes Or Vape? 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 With Others [email or web address] Information not available 05/14/2020 Marital Status [email or web address] Informatio n not available 05/14/2020 What Was The Date Of Your Most Recent Tobacco Screening? 05/17/2020 [email or web address] Information not available 06/27/2020 Do You Or Have You Ever Used Smokeless Tobacco? Currently Chews Tobacco [id number] Information not available 06/08/2020 General Stress Level Low [email or web address] Information not available 05/14/2020 Sex: Unknown Functional Status Question Answer Note LastModified by [facility] Details LastModified Time What is your exercise level? Occasional [id number] Information not available 06/08/2020 Mental Status None recorded. Family History Relationship Description Onset Age of this Age Resolved Age Notes LastModified by Organization Details LastModified Time Father Alzheimer's disease [email or web address] Not available 05/14 12:56:29 Mother Coronary arterioscler osis [email or web address] Not available 05/14 12:56:41 Mother Heart disease [email or web address] Not available 05/14 12:56:49 Medical History Condition Response Arrhythmia Y Hypertension Y Past Encounters Encounter ID Performer Location Encounter Start Date Encounter Closed Date Diagnosis/Indication Diagnosis SNOMED-CT Code Diagnosis ICD10 Code Diagnosis Note [id number] Arcelia Silva [facility] [place] [address] 05/17/2020 16:31:52 05/17/2020 17:10:15 Essential hypertension 71969446 I10 with white coat syndrone.C heck BP at home. Pt planing to get machine.Wi ll start HCTZ 25 mg daily Supraventr icular tachycardia 8764207 I47.1 paroxysmal in the setting of alcohol omita9L echo with no structural diseaseCon tinue CardizemD/ C Metoprolol . Start HCTZ for better BP control Alcohol abuse 78553297 F 10.10 [id number] Maximilian Howard MD [facility] [place] [address] 06/14/2021 16:10:53 06/14/2021 16:56:21 Essential hypertension 19147316 I10 with white coat syndrone.W ill start HCTZ 25 mg daily Supraventr icular tachycardia 4240121 I47.1 paroxysmal in the setting of alcohol zqbrd9M echo with no structural diseaseCon tinue CardizemD/ C Metoprolol . Start HCTZ for better BP control Alcohol abuse 07019356 F 10.10 Dyspnea on exertion 6084 5006 R06.09 Treadmill Myoview Stress test, has high [place] Risk score. Has Known CAD, or CAD risk equivalent . To look for any ischemia. [id number] Maximilian Howard MD [facility] [place] [address] 04/25/2022 10:52:01 04/25/2022 11:40:32 Essential hypertension 15953615 I10 with white coat syndrone.W ill start HCTZ 25 mg daily Supraventr icular tachycardia 4602324 I47.1 paroxysmal in the setting of alcohol mqklc5G echo with no structural diseaseCon tinue CardizemD/ C Metoprolol . Start HCTZ for better BP control Alcohol abuse 50838520 F 10.10 Dyspnea on exertion 6084 5006 R06.09 Obtain echo to evaluate for structural /functiona l disease. [id number] Maximilian Howard MD [facility] [address] [place] [address] 10/24/2022 11:04:25 10/24/2022 11:52:03 Essential hypertension 65682195 I10 with white coat syndrone.O n HCTZ 25 mg daily Supraventr icular tachycardia 8643043 I47.1 Continue Cardizem Alcohol abuse 87504250 F 10.10 He cut down Dyspnea on exertion 6084 5006 R06.09 Normal Left ventricula r systolic function [id number] SAHIL SALAZAR [facility] [address] [place] [address] 04/24/2023 11:33:02 04/24/2023 12:35:57 Essential hypertension 27400402 I10 with white coat syndrone.O n HCTZ 25 mg daily Supraventr icular tachycardia 1246192 I47.1 Continue Cardizem Alcohol abuse 41153149 F 10.10 He cut down Dyspnea on exertion 6084 5006 R06.09 Normal Left ventricula r systolic function Dizziness 246150828 R42 will do heart monitor for one week Pre-surger y evaluation 672612640 Z01.818 There is no cardiac contraindi cation [...] Finn Member ID Guarantor Name 05/17/2020 1 [facility] [employer] [facility] Larry Blackburn [id number] Richie Blackburn 06/14/2021 1 [facility] [employer] [facility] Larry Blackburn [id number] Richie Blackburn 04/25/2022 1 [employer] [facility] [employer] (PP[employer]) Larry Blackburn [id number] Richie Blackburn 10/24/2022 1 [facility]: (PPO) [id number] Brenda Blackburn [id number] Richie Blackburn 04/24/2023 1 [facility]: (PPO) [id number] Brenda Blackburn [id number] Richie Blackburn Notes Date Note Type Note Provider Name and Address Organization Details Recorded Time 05/17/2020 text/html 05/17/20 CC: [facility] 59 year-old man with history of presents for cardiac consultation for hospital followup. Patient has history of HTN, alcohol abuse and anxiety disorder. He Was admitted to [facility] with SVT HR 160. 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 [...] the LV (pseudonormal filling pattern). Arcelia Silva [facility] [place] - [facility] 05/17/2020 17:10:13 06/14/2021 text/html 06/14/21CC : Car diac follow up, dyspnea on [id number] year-old man with h/o Hypertension, SVT, Anxiety, [...] any statins. Previously :He Was admitted to [facility] with SVT HR 160. He received [...] and it was normalHe is a construction safety consultant. He is trying to decrease alcohol intake. [...] LV (pseudonormal filling pattern). Maximilian Howard MD [address] [place], [address], [facility] 06/14/2021 16:54:27 04/25/2022 text/html 04/25/22CC : Car diac follow up, dyspnea on [id number] year-old man with h/o Hypertension, SVT, Anxiety, [...] Exercise tolerance: Poor. Previously:He Was admitted to [facility] with SVT HR 160. He received [...] and it was normalHe is a construction safety consultant. He is trying to decrease alcohol intake. [...] filling pattern). Maximilian Howard MD [address] [place], [address], [facility] 04/25/2022 11:36:30 10/24/2022 text/html 10/24/22CC : Car diac follow up, dyspnea on [id number] year-old man with h/o Hypertension, SVT, Anxiety, [...] Exercise tolerance: Poor. He Was admitted to [facility] with SVT HR 160. 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 [...] filling pattern). Maximilian Howard MD [address] [place], [address], [facility] 10/24/2022 11:50:27 04/24/2023 text/html 04/24/23CC : Car dia follow up [id number] year-old man with h/o Hypertension, SVT, Anxiety, [...] Exercise tolerance: Poor. He Was admitted to [facility] with SVT HR 160. 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 [...] dysfunction of the LV (pseudonormal filling pattern). DIANNE Gregory - [facility] 04/24/2023 12:23:09
== END 2024-09-17 12:04 | disposition home or self-care (01) ==
PROVIDERS: PCP Student in an Organized Health Care Education/Training Program; Visit Provider Urology
DX: C61 Malignant neoplasm of prostate (principal); Z90.79 Acquired absence of other genital organ(s)
CPT/HCPCS: 51600; 74430; Q9967